=== PATIENT | male | born 1950 | race African-American/Black ===

== ENCOUNTER 2020-06-05 11:47 | Inpatient (IN) | payer MEDICARE, OTHER ==
[~2020-06-05] VITALS: Ht 182.9 cm; Wt 94.9 kg
[2020-06-05 11:47] VITALS: BP 126/87
[2020-06-05 11:50] VITALS: BP 126/87
--- NOTE | 2020-06-05 11:55 | NUR ---
ED Nurse Note: Patient BIBA d/t tremors that started this AM. Patient states he was going to a doctor appointment this AM and called the ambulance because of the tremors. Patient AxO x 4, patient has temp of 103.2 oral. Ice packs wrapped in towels placed in under arms, Dr. Dale notified. Patient HR between 120's and 135. Patient has no s/s of acute distress, on the desk monitor.
[2020-06-05] MEDS ORDERED: Piperacillin/Tazobactam 3.375 GM in NS 110 ML IVPB ONE (12:00)
[2020-06-05] MEDS ORDERED: Vancomycin 1 GM in NS 275 ML IVPB ONE (12:00)
[2020-06-05] MEDS ORDERED: Acetaminophen 500mg (ES) tab ORAL ONE (12:00)
[2020-06-05 12:39] LABS: HEMATOCRIT 45.2 % (42.0-52.0); HEMOGLOBIN 14.4 G/DL (14.2-18.0); MEAN CORPUSCULAR VOLUME 95 FL (80-99); PLATELET COUNT 164 K/UL (150-450); RED BLOOD COUNT 4.78 M/UL (4.70-6.10); RED CELL DISTRIBUTION WIDTH 12.5 % (11.6-14.8); WHITE BLOOD COUNT 14.8 K/UL (4.8-10.8)
[2020-06-05 12:40] LABS: APPEARANCE,URINE CLOUDY; BILIRUBIN, URINE NEGATIVE (NEGATIVE); COLOR,URINE PALE YELLOW; GLUCOSE, URINE (UA) NEGATIVE (NEGATIVE); KETONES,URINE 2+ (NEGATIVE); LEUKOCYTE ESTERASE ,URINE 3+ (NEGATIVE); NITRITE,URINE NEGATIVE (NEGATIVE); PH,URINE 6.5 (4.5-8.0); PROTEIN,URINE 3+ (NEGATIVE); UROBILINOGEN,URINE 1 MG/DL (0.0-1.0)
[2020-06-05 12:47] LABS: ANION GAP 13 mmol/L (5-15); BLOOD UREA NITROGEN 20 mg/dL (7-18); CALCIUM 9.8 MG/DL (8.5-10.1); CARBON DIOXIDE 21 MMOL/L (21-32); CHLORIDE 101 MMOL/L (98-107); POTASSIUM 4.2 MMOL/L (3.5-5.1); SODIUM 135 MMOL/L (136-145)
[2020-06-05 13:01] LABS: ALANINE AMINOTRANSFERASE 22 U/L (12-78); ALBUMIN 2.9 G/DL (3.4-5.0); ALBUMIN/GLOBULIN RATIO 0.5 (1.0-2.7); ALKALINE PHOSPHATASE 89 U/L (46-116); ASPARTATE AMINO TRANSFERASE 26 U/L (15-37); BILIRUBIN,TOTAL 1.5 MG/DL (0.2-1.0); CKMB 0.8 NG/ML (0.0-3.6); CREATINE KINASE 86 U/L (26-308)
[2020-06-05 13:04] LABS: BILIRUBIN,DIRECT 0.7 MG/DL (0.0-0.3)
--- NOTE | 2020-06-05 13:06 | Emergency Room Report ---
History of Present Illness General Chief Complaint: General Complaint Source: Patient Present Illness HPI Disclaimer: Please note that this report is being documented using DRAGON technology. This can lead to erroneous entry secondary to incorrect interpretation by the dictating instrument. HPI: This is a 70-year-old male with history of bladder cancer status post urostomy recent diagnosis of kidney stones presents for evaluation of tremors. Patient was scheduled to have outpatient imaging for evaluation of left-sided kidney stones. He reported left flank pain yesterday but improved this morning. EMS arrived at his home found him tachycardic and febrile. Heart rate was 140s blood pressures were stable. Patient was febrile with a fever of 103. He denies vomiting, nausea, diarrhea. Denies palpitations, shortness of breath, cough. No known sick contacts. Denies headaches, sore throat, nasal congestion or other changes in his health. Follows with urology at [facility] PMH: Bladder cancer PSH: Urostomy Allergies: Denied Social Hx: Quit smoking many decades ago Allergies: Coded Allergies: No Known Allergies (Unverified , 06/05/20) COVID-19 Screening Contact w/high risk pt: No Experienced COVID-19 symptoms?: No COVID-19 Testing performed RESIDENTIAL SUBCONTRACTOR: No Nursing Documentation-[facility] Past Medical History: No History, Except For Hx Cardiac Problems: Yes - Bladder CA, urostomy, kidney stone. Hx COPD: No Hx Cerebrovascular Accident: No Hx Seizures: No Review of Systems All Other Systems: negative except mentioned in HPI Physical Exam Vital Signs Date Time Temp Pulse Resp B/P (MAP) Pulse Ox O2 Delivery O2 Flow Rate FiO2 06/05/20 11:33 97.9 140 19 126/87 (100) 96 Room Air General: Awake and alert, no acute distress, febrile HEENT: NC/AT. EOMI. Cardiovascular: Tachycardic. S1 and S2 normal. No murmur appreciated Resp: Normal work of breathing. No cough, wheezing or crackles appreciated Abdomen: Abdomen is soft, nondistended. Nontender. Urostomy bag present in right lower quadrant with hazy urine Skin: Intact. No abrasions, laceration or rash over the exposed skin MSK: Normal tone and bulk. Moving all extremities. No obvious deformity. Neuro: Awake and alert. Mentating appropriately. Procedures Critical Care Time Critical Care Time Total critical care time: Approximately 31 minutes Due to a high probability of clinically significant, life threatening deterioration, the patient required the highest level of preparedness to intervene emergently and I personally spent this critical care time directly and personally managing the patient. This critical care time included obtaining a history, examining the patient, pulse oximetry, ordering and reviewing studies , ordering treatments, evaluating response to treatment and updating management plan as needed, frequent reassessment and discussion with other providers as well as arranging for ultimate disposition. This critical to care time was performed to assess and manage the high probability of life-threatening deterioration that could result in multiorgan failure. This critical care time is separate from the separately billable procedures and treating other patients. Medical Decision Making Diagnostic Impression: Primary Impression: UTI (urinary tract infection) Additional Impression: Sepsis ER Course 70-year-old male with history of bladder cancer status post urostomy recent diagnosis kidney stones presenting for tremors. Patient arrives febrile and tachycardic. Greatest concern for sepsis likely from urinary source. Also on the differential pneumonia, COVID-19, gastroenteritis, mild clonus, other viral syndrome. Patient arrives in stable condition. IV access established IV fluids started 30 cc/kg. Patient was provided with empiric antibiotics and antipyretics. EKG shows sinus tachycardia but no acute ischemic changes. We will draw broad labs including cultures, lactate and sent for COVID-19 testing. He will require CT of his torso to evaluate for possible infected kidney stone. Patient will require admission 1400: Labs show evidence of an acute urinary tract infection positive for leukocyte esterase, multiple RBCs, innumerable WBCs and moderate bacteria. Elevated white count of 14.8 with a neutrophil predominance. Rapid COVID test was negative. Patient show signs of acute kidney injury with an elevation in creatinine 2.0 and BUN as well. Bilirubin elevated. CT scan is pending at this time. Patient is admitted to Dr. Cochran per his health insurance plan Sepsis reevaluation: I, Dr. Gutierrez Dale, reevaluated the patient Capillary refill: Less than 2 seconds Heart rate: 110 Respiratory rate: 19 Initial Lactate: 2.5 Repeat Lactate: 2.0 Pressors: Not indicated No signs of fluid overload Laboratory Tests Test 06/05/20 12:05 06/05/20 13:00 06/06/20 07:35 06/06/20 16:00 White Blood Count 14.8 K/UL (4.8-10.8) H 11.2 K/UL (4.8-10.8) H Red Blood Count 4.78 M/UL (4.70-6.10) 4.81 M/UL (4.70-6.10) Hemoglobin 14.4 G/DL (14.2-18.0) 14.5 G/DL (14.2-18.0) Hematocrit 45.2 % (42.0-52.0) 45.7 % (42.0-52.0) Mean Corpuscular Volume 95 FL (80-99) 95 FL (80-99) Mean Corpuscular Hemoglobin 30.2 PG (27.0-31.0) 30.1 PG (27.0-31.0) Mean Corpuscular Hemoglobin Concent 31.9 G/DL (32.0-36.0) L 31.7 G/DL (32.0-36.0) L Red Cell Distribution Width 12.5 % (11.6-14.8) 13.1 % (11.6-14.8) Platelet Count 164 K/UL (150-450) 148 K/UL (150-450) L Mean Platelet Volume 9.0 FL (6.5-10.1) 8.6 FL (6.5-10.1) Neutrophils (%) (Auto) % (45.0-75.0) % (45.0-75.0) Lymphocytes (%) (Auto) % (20.0-45.0) % (20.0-45.0) Monocytes (%) (Auto) % (1.0-10.0) % (1.0-10.0) Eosinophils (%) (Auto) % (0.0-3.0) % (0.0-3.0) Basophils (%) (Auto) % (0.0-2.0) % (0.0-2.0) Differential Total Cells Counted 100 100 Neutrophils % (Manual) 98 % (45-75) H 77 % (45-75) H Lymphocytes % (Manual) 1 % (20-45) L 4 % (20-45) L Monocytes % (Manual) 1 % (1-10) 3 % (1-10) Eosinophils % (Manual) 0 % (0-3) 0 % (0-3) Basophils % (Manual) 0 % (0-2) 0 % (0-2) Band Neutrophils 0 % (0-8) 16 % (0-8) H Platelet Estimate Adequate Decreased L Platelet Morphology Normal Normal Red Blood Cell Morphology Normal Normal Prothrombin Time 11.2 SEC (9.30-11.50) Prothrombin Time INR 1.0 (0.9-1.1) Activated Partial Thromboplast Time 28 SEC (23-33) Urine Color Pale yellow Urine Appearance Cloudy Urine pH 6.5 (4.5-8.0) Urine Specific [place] 1.015 (1.005-1.035) Urine Protein 3+ (NEGATIVE) H Urine Glucose (UA) Negative (NEGATIVE) Urine Ketones 2+ (NEGATIVE) H Urine Blood 5+ (NEGATIVE) H Urine Nitrite Negative (NEGATIVE) Urine Bilirubin Negative (NEGATIVE) Urine Urobilinogen 1 MG/DL (0.0-1.0) H Urine Leukocyte Esterase 3+ (NEGATIVE) H Urine RBC 20-30 /HPF (0 - 0) H Urine WBC Tntc /HPF (0 - 0) H Urine Squamous Epithelial Cells Occasional /LPF Urine Amorphous Sediment Many /LPF (NONE) H Urine Bacteria Moderate /HPF (NONE) H Sodium Level 135 MMOL/L (136-145) L 132 MMOL/L (136-145) L Potassium Level 4.2 MMOL/L (3.5-5.1) 4.4 MMOL/L (3.5-5.1) Chloride Level 101 MMOL/L (98-107) 100 MMOL/L (98-107) Carbon Dioxide Level 21 MMOL/L (21-32) 20 MMOL/L (21-32) L Anion Gap 13 mmol/L (5-15) 12 mmol/L (5-15) Blood Urea Nitrogen 20 mg/dL (7-18) H 17 mg/dL (7-18) Creatinine 2.0 MG/DL (0.55-1.30) H 2.1 MG/DL (0.55-1.30) H Estimated Glomerular Filtration Rate 33.4 mL/min (>60) 38.3 mL/min (>60) Glucose Level 152 MG/DL (74-106) H 118 MG/DL (74-106) H Lactic Acid Level 2.50 mmol/L (0.4-2.0) H 2.00 mmol/L (0.66-2.22) Calcium Level 9.8 MG/DL (8.5-10.1) 9.1 MG/DL (8.5-10.1) Phosphorus Level 2.0 MG/DL (2.5-4.9) L Magnesium Level 1.7 MG/DL (1.8-2.4) L Total Bilirubin 1.5 MG/DL (0.2-1.0) H Direct Bilirubin 0.7 MG/DL (0.0-0.3) H Aspartate Amino Transferase (AST) 26 U/L (15-37) Alanine Aminotransferase (ALT) 22 U/L (12-78) Alkaline Phosphatase 89 U/L (46-116) Total Creatine Kinase 86 U/L (26-308) Creatine Kinase MB 0.8 NG/ML (0.0-3.6) Creatine Kinase MB Relative Index 0.9 Troponin I 0.000 ng/mL (0.000-0.056) Pro-B-Type Natriuretic Peptide 407 pg/mL (0-125) H Total Protein 8.2 G/DL (6.4-8.2) Albumin 2.9 G/DL (3.4-5.0) L Globulin 5.3 g/dL Albumin/Globulin Ratio 0.5 (1.0-2.7) L Calcium (Send out) Pending Parathyroid Hormone (Intact) Pending Urine Random Sodium 36 mmol/L (20-110) Urine Creatinine 114.1 MG/DL (30.0-125.0) Microbiology Date/Time Source Procedure Growth Status 06/05/20 12:05 Nasopharynx SARS-CoV-2 RdRp Gene Assay - Final Complete EKG Diagnostic Results EKG Time: 12:23 Rate: tachycardiac Rhythm: NSR ST Segments: no acute changes Other Impression Sinus rhythm, normal axis, tachycardic with rate of 113 bpm. QTc interval [address] segment changes. Rhythm Strip Diag. Results Rhythm Strip Time: 12:22 EP Interpretation: yes Rate: 113 Rhythm: NSR, no PVC's, no ectopy Last Vital Signs Date Time Temp Pulse Resp B/P (MAP) Pulse Ox O2 Delivery O2 Flow Rate FiO2 06/05/20 11:33 97.9 140 19 126/87 (100) 96 Room Air Disposition: ADMITTED INPATIENT Condition: Improved Referrals: NOT CHOSEN IPA/,REFERRING (PCP) Gutierrez Dale MD Jun 05, 2020 13:06
--- NOTE | 2020-06-05 13:15 | NUR ---
ED Nurse Note: Handoff report given to Mariaelena WOOTEN. Patient stable, no s/s of acute distress. Endorsed plan of care.
[2020-06-05 13:30] VITALS: BP 126/87
--- NOTE | 2020-06-05 13:30 | NUR ---
ED Nurse Note: Lactic acid resent to lab
--- NOTE | 2020-06-05 13:55 | Diagnostic Imaging Report ---
Indication: Cough Technique: One view of the chest Comparison: none Findings: Inspiration is suboptimal. The heart size is normal. No definite infiltrates, effusions, congestion. Mild interstitial prominence is probably related to body habitus. Impression: Findings as noted. No definite acute process
--- NOTE | 2020-06-05 14:56 | NUR ---
ED Nurse Note: Patient was admited to Tele unit due to high fever, possible sepsis. Patient was transfered to the unit via gurney, by ACLS protocol with all belongings. Patient AAO x3, VSS at this time.
--- NOTE | 2020-06-05 15:00 | NUR ---
NURSE NOTES: Pt brought up from ER via gurney breathing easily on room air, denies SOB and denies pain at this time. Vital signs stable with ST on the monitor at 120/min. IV access RW, leaking on flush, removed. LAC access flushed with 10 ml NS and locked. Pt ambulated to the bed, moving all extremities well. Lungs cleat bilaterally. Abdomen soft/supple no rigidity/masses/guarding. No pedal or dependent edema. Bed left in low position, side rails up x 2 and call light left near pt's hand.
--- NOTE | 2020-06-05 15:17 | NUR ---
CASE MANAGEMENT:REVIEW 70 YR OLD MALE BIBA FROM HOME CC: BODY TREMORS PMH: KIDNEY STONES SI: SEPSIS 103.2 140 19 126/87 96% ON RA WBC+14.8 BUN+20 CR+2.0 PHOS-2.0 MAG-1.7 IS: 1L NS BOLUS IV VANCOMYCIN IV ZOSYN TYLENOL PO COVID SWAB URINE CX CT ABD/PELVIS CHEST XRAY BLOOD CX : TELEMETRY STATUS
--- NOTE | 2020-06-05 15:20 | Diagnostic Imaging Report ---
CLINICAL INDICATION:History of bladder cancer with urostomy, pain, history kidney stones, left flank pain TECHNIQUE: No oral contrast, per emergency room physician request. No IV contrast, due to history of renal insufficiency Spiral acquisitions obtained through the chest, abdomen, and pelvis. Multiplanar reconstructions were generated. Total dose length product 739 mGycm. CTDIvol(s) 9 mGy. Radiation dose was minimized using automated exposure control COMPARISON: none FINDINGS Chest: Small paraseptal bullae are seen in the right lung apex. 2 small calcified nodules are seen in the upper right middle lobe and another in the posterior inferior right lower lobe. 6 mm subpleural noncalcified nodule is seen in the right middle lobe, image 61 series 6. A 3 mm nodule is seen in the right middle lobe, 62/6. Compressive atelectatic changes are seen at both lung bases. Mosaic perfusion pattern is also seen at the lung bases. No dense consolidation. No definite congestion. The pleural spaces are clear. The heart size is normal. No pericardial effusion. Normal esophagus. Granulomatous sha calcifications are seen in the right pulmonary hilum. No mediastinal or hilar mass or adenopathy. The thyroid is prominent without discrete mass. No axillary or chest wall mass or adenopathy. The bones are unremarkable. Abdomen pelvis: There is a 7 x 7 x 5 mm calculus in the proximal left ureter, just downstream from the ureteropelvic junction. This results in mild to moderate hydronephrosis. There is some perinephric fat stranding. There also appears to be a 5 mm calculus and a second proximal punctate calculus in the mid left ureter. The ureter is dilated proximal to this as well. There is a 4 mm calculus in the lower pole collecting system and a cluster of calculi and a posterior interpolar region calyx. There is a 4.5 cm posterior cyst. There is a urinary diversion, with a urostomy in the right lower quadrant. There is a 5 mm calculus which appears to be dependent within the fluid-filled urostomy and is probably not within either ureter. There is minimal right hydronephrosis, although no definite right ureteral calculus is demonstrated. There is stranding of the right perinephric fat. A very faint punctate calculus is seen within the right lower pole collecting system. Lack of IV contrast limits assessment of the renal parenchyma. There is a 4 cm cyst in the upper pole of the left kidney. There is a parastomal hernia which contains a knuckle of small bowel versus the edge of a small bowel loop. There is some dilatation of small bowel in the anterior upper abdomen. However, this is probably functional related to the small bowel to small bowel anastomosis where the urostomy segment was resected. There is also a ventral hernia which contains a knuckle of small bowel. This does not demonstrate evidence of strangulation or obstruction. There are occasional colonic diverticula. No evidence of diverticulitis. There is mild distention of the rectum with feces. The appendix is normal. No free or loculated intraperitoneal gas or fluid is evident. The stomach and duodenum are unremarkable. There is left-sided para-aortic lymphadenopathy. Nodes in this area measure up to 2 cm long axis and 1.3 cm short axis dimensions. There is stranding of the fat surrounding the enlarged nodes. Prominent peripancreatic nodes are also demonstrated. There is a 7.7 cm long axis diameter unilocular cyst in the right side of the pelvis. This appears to be contiguous with the iliac vessels. Lack of IV contrast limits assessment of the other solid organs. The liver is borderline hypoattenuating. No focal abnormality demonstrated. The gallbladder, bile ducts, pancreas, spleen, adrenals are unremarkable. The bones are unremarkable. Some heterotopic ossification is seen in the left inferior buttock region. IMPRESSION: Postsurgical changes, as described, status post cystectomy and urinary diversion 7 x 7 x 5 mm calculus in the proximal left ureter. 5 mm calculus and smaller punctate calculus in the mid left ureter. This results in mild to moderate left hydronephrosis as well as perinephric fat stranding Trace to mild right hydronephrosis, without definite downstream obstructive lesion. Significance/etiology uncertain Nonspecific stranding of the perinephric fat on the right. Could be chronic, could be related to the mild hydronephrosis, or could indicate acute inflammation 5 mm calculus probably within the urostomy pouch Nonobstructive bilateral intrarenal calculi Left-sided periaortic lymphadenopathy and infiltration of the surrounding fat. While possibly reactive, this raises concern for metastatic lymphadenopathy. Consider further evaluation with PET scanning if indicated clinically Small parastomal hernia containing a knuckle of or the edge of the loop of small bowel. Dilatation of the small bowel adjacent and possibly proximal to this is probably due to dysfunctional is infiltration of the small bowel related to the surgical anastomosis, that mild small bowel obstruction related to this cannot be completely ruled out. Small ventral hernia, without evidence of obstruction or strangulation 7.7 cm right pelvic unilocular simple cyst. Probably postoperative lymphocele. Cystic neoplasm deemed much less likely Borderline hepatic hypoattenuation, could indicate very mild fatty change Colonic diverticulosis. No evidence of diverticulitis Mild distention of the rectum with feces, doubt significance but early fecal impaction possible Evidence of old granulomatous disease within the right lung and right pulmonary hilum. Small noncalcified nodules in the right middle lobe are noted. If there is significant smoking history or other risk factors for lung carcinoma, then short interval follow up at 6 months is recommended if clinically indicated Small paraseptal bullous changes at the right lung apex Basilar compressive atelectatic changes. Mosaic perfusion pattern probably is due to atelectasis The CT scanner at [facility] is accredited by the [employer] and the scans are performed using protocols designed to limit radiation exposure to as low as reasonably achievable to attain images of sufficient resolution adequate for diagnostic evaluation.
[2020-06-05 16:00] VITALS: BP 112/68
[2020-06-05 17:26] VITALS: BP 100/62
[2020-06-05] MEDS ORDERED: NS w/KCl 20mEq 1000ml 1,000 ML IV SCH (19:00)
--- NOTE | 2020-06-05 19:25 | NUR ---
NURSE NOTES: Received hand-off report from Mariajose Clayton RN. Patient in stable condition, alert and oriented x4, no acute signs of distress noted. Left antecubital 20g IV saline locked, patent, flushed with 10mL NS, no tenderness / pain noted. IV site is intact, clean, dry, no infiltration, leaking or redness noted. Respirations are unlabored, regular and even, on room air, sPo2 is 100%. color television console monitor in place, bed in lowest and locked position, bed alarm activated, call light within reach.
--- NOTE | 2020-06-05 19:25 | NUR ---
Nurses Note Report given to Lory WOOTEN. In stable condition. Plan of care endorsed.
[2020-06-05 20:00] VITALS: BP 127/78
[2020-06-05] MEDS: Piperacillin/Tazobactam 3.375 GM in NS 110 ML IVPB SCH (20:27)
[2020-06-05] MEDS: Heparin 5000 units/ml inj SUBQ SCH (20:29)
--- NOTE | 2020-06-05 22:15 | History and Physical Report ---
DATE OF ADMISSION: 06/05/2020 HISTORY OF PRESENT ILLNESS: This is a 70-year-old male with history of bladder carcinoma, status post urostomy, and also a history of urolithiasis. He came to the hospital for feeling weak and tremulous. The patient states that he has been having left-sided flank pain at home. He was tachycardic and febrile per his own report. He was admitted to the hospital with concerns about urosepsis. PAST HISTORY: Bladder carcinoma, status post urostomy. HOME MEDICATIONS: Reviewed and reconciled in chart. ALLERGIES: None reported. SOCIAL HISTORY: He has been a smoker, but quit many years ago. PHYSICAL EXAMINATION: GENERAL: Reveals a 70-year-old male. HEENT: Unremarkable. CHEST: Decreased breath sounds bilaterally with normal heart sounds. ABDOMEN: Soft. EXTREMITIES: There is no edema. A urostomy bag is noted in the right lower quadrant. VITAL SIGNS: Blood pressure 126/60, heart rate is 110, respirations 18, and O2 saturation 92% on room air. LABORATORY DATA: Laboratory testing shows white count 14,000. Hemoglobin is normal. Creatinine of 2. Coags are negative. Urinalysis negative except for pus cells. IMAGING STUDIES: X-ray of the chest was obtained, which shows clear lung purdy bilaterally. CT of the abdomen and pelvis obtained, which shows a calculus in the left ureter with hydronephrosis. There is a parastomal hernia, chronic diverticulitis, left-sided para-aortic lymphadenopathy, cystectomy, and diversion findings. IMPRESSION: 1. Urosepsis. 2. Bladder carcinoma. 3. Urostomy. DISCUSSION: Admit to the hospital. At this point, I will continue his home medications. Consult Urology and Nephrology. IV fluids to be given. We will follow carefully. Jaya Cochran M.D. DR: HARSHA JOB#: [id number] CC:
[2020-06-06] VITALS: BP 135/79
[2020-06-06 04:00] VITALS: BP 144/88
--- NOTE | 2020-06-06 07:20 | NUR ---
HAND-OFF: Report given to SUGAR Clayton. Patient in stable condition, plan of care endorsed
[2020-06-06 08:25] VITALS: BP 142/86
[2020-06-06] MEDS: Piperacillin/Tazobactam 3.375 GM in NS 110 ML IVPB SCH ×2 (08:38→16:36)
[2020-06-06] MEDS: Heparin 5000 units/ml inj SUBQ SCH ×2 (08:41→21:40)
[2020-06-06 08:46] LABS: HEMATOCRIT 45.7 % (42.0-52.0); HEMOGLOBIN 14.5 G/DL (14.2-18.0); MEAN CORPUSCULAR VOLUME 95 FL (80-99); PLATELET COUNT 148 K/UL (150-450); RED BLOOD COUNT 4.81 M/UL (4.70-6.10); RED CELL DISTRIBUTION WIDTH 13.1 % (11.6-14.8); WHITE BLOOD COUNT 11.2 K/UL (4.8-10.8)
[2020-06-06 09:00] LABS: ANION GAP 12 mmol/L (5-15); BLOOD UREA NITROGEN 17 mg/dL (7-18); CALCIUM 9.1 MG/DL (8.5-10.1); CARBON DIOXIDE 20 MMOL/L (21-32); CHLORIDE 100 MMOL/L (98-107); CREATININE 2.1 MG/DL (0.55-1.30); POTASSIUM 4.4 MMOL/L (3.5-5.1); SODIUM 132 MMOL/L (136-145)
--- NOTE | 2020-06-06 10:02 | NUR ---
Nurse Notes Pt is A/O x4 and breathing easily on room air, denies SOB and denies pain at this time. Vital signs stable with ST on the monitor at 120/min. His Iv on the LAC access has been flushed with 10ml NS and locked with cap. Pt ambulates to the bed and bathroom moving all extremities well. Lungs cleat bilaterally. Abdomen soft/supple no rigidity/masses/guarding. No pedal or dependent edema. Bed left in low position, side rails up x 2 and call light left near pt's hand.
--- NOTE | 2020-06-06 10:20 | Pulmonology Progress Note ---
Subjective Interval Events: Looking na dfeeling better Constitutional: Reports: no symptoms HEENT: Repors: no symptoms Respiratory: Reports: no symptoms Cardiovascular: Reports: no symptoms Gastrointestinal/Abdominal: Reports: no symptoms Allergies: Coded Allergies: No Known Allergies (Unverified , 06/05/20) Objective Last 24 Hour Vital Signs Date Time Temp Pulse Resp B/P (MAP) Pulse Ox O2 Delivery O2 Flow Rate FiO2 06/06/20 09:24 Room Air 06/06/20 09:00 104 06/06/20 08:25 98.1 108 19 142/86 (104) 95 06/06/20 04:00 98.1 105 19 144/88 (106) 95 06/06/20 04:00 105 06/06/20 00:00 97.9 111 19 135/79 (97) 97 06/06/20 00:00 111 06/05/20 21:00 Room Air 06/05/20 20:00 111 06/05/20 20:00 99.5 117 19 127/78 (94) 97 06/05/20 18:00 115 06/05/20 17:26 98.5 118 18 100/62 (75) 96 06/05/20 16:00 136 20 112/68 (83) 96 06/05/20 15:34 Room Air 06/05/20 14:56 99.0 19 126/87 96 Room Air 06/05/20 13:30 99.0 19 126/87 96 Room Air 06/05/20 12:55 99.0 06/05/20 11:50 135 19 Room Air 06/05/20 11:47 103.7 19 126/87 96 Room Air 06/05/20 11:33 97.9 140 19 126/87 (100) 96 Room Air Intake and Output 06/05/20 06/06/20 19:00 07:00 Intake Total 2240 ml Output Total 475 ml Balance 1765 ml Intake Oral 240 ml IV Total 2000 ml Output Urine Total 475 ml # Voids 3 # Bowel Movements 1 General Appearance: no acute distress HEENT: normocephalic Respiratory: chest wall non-tender, lungs clear Cardiovascular: normal peripheral pulses, normal rate Abdomen: normal bowel sounds Microbiology Date/Time Source Procedure Growth Status 06/05/20 12:05 Blood Blood Culture - Preliminary Resulted 06/05/20 12:05 Nasopharynx SARS-CoV-2 RdRp Gene Assay - Final Complete 06/05/20 12:05 Urine,Clean Catch Urine Culture - Preliminary Gram Negative Rachid Resulted Laboratory Tests 06/05/20 12:05: White Blood Count 14.8H, Red Blood Count 4.78, Hemoglobin 14.4, Hematocrit 45.2 , Mean Corpuscular Volume 95, Mean Corpuscular Hemoglobin 30.2, Mean Corpuscular Hemoglobin Concent 31.9L, Red Cell Distribution Width 12.5, Platelet Count 164, Mean Platelet Volume 9.0, Neutrophils (%) (Auto) , Lymphocytes (%) (Auto) , Monocytes (%) (Auto) , Eosinophils (%) (Auto) , Basophils (%) (Auto) , Differential Total Cells Counted 100, Neutrophils % ( Manual) 98H, Lymphocytes % (Manual) 1L, Monocytes % (Manual) 1, Eosinophils % ( Manual) 0, Basophils % (Manual) 0, Band Neutrophils 0, Platelet Estimate Adequate, Platelet Morphology Normal, Red Blood Cell Morphology Normal, Prothrombin Time 11.2, Prothromb Time International Ratio 1.0, Activated Partial Thromboplast Time 28, Urine Color Pale yellow, Urine Appearance Cloudy, Urine pH 6.5, Urine Specific [place] 1.015, Urine Protein 3+H, Urine Glucose (UA ) Negative, Urine Ketones 2+H, Urine Blood 5+H, Urine Nitrite Negative, Urine Bilirubin Negative, Urine Urobilinogen 1H, Urine Leukocyte Esterase 3+H, Urine RBC 20-30H, Urine WBC TntcH, Urine Squamous Epithelial Cells Occasional, Urine Amorphous Sediment ManyH, Urine Bacteria ModerateH, Sodium Level 135L, Potassium Level 4.2, Chloride Level 101, Carbon Dioxide Level 21, Anion Gap 13, Blood Urea Nitrogen 20H, Creatinine 2.0H, Estimat Glomerular Filtration Rate 33.4, Glucose Level 152H, Lactic Acid Level 2.50H, Calcium Level 9.8, Phosphorus Level 2.0L, Magnesium Level 1.7L, Total Bilirubin 1.5H, Direct Bilirubin 0.7H, Aspartate Amino Transf (AST/SGOT) 26, Alanine Aminotransferase ( ALT/SGPT) 22, Alkaline Phosphatase 89, Total Creatine Kinase 86, Creatine Kinase MB 0.8, Creatine Kinase MB Relative Index 0.9, Troponin I 0.000, Pro-B- Type Natriuretic Peptide 407H, Total Protein 8.2, Albumin 2.9L, Globulin 5.3, Albumin/Globulin Ratio 0.5L 06/05/20 13:00: Lactic Acid Level 2.00 06/06/20 07:35: White Blood Count 11.2H, Red Blood Count 4.81, Hemoglobin 14.5, Hematocrit 45.7 , Mean Corpuscular Volume 95, Mean Corpuscular Hemoglobin 30.1, Mean Corpuscular Hemoglobin Concent 31.7L, Red Cell Distribution Width 13.1, Platelet Count 148L, Mean Platelet Volume 8.6, Neutrophils (%) (Auto) , Lymphocytes (%) (Auto) , Monocytes (%) (Auto) , Eosinophils (%) (Auto) , Basophils (%) (Auto) , Differential Total Cells Counted 100, Neutrophils % ( Manual) 77H, Lymphocytes % (Manual) 4L, Monocytes % (Manual) 3, Eosinophils % ( Manual) 0, Basophils % (Manual) 0, Band Neutrophils 16H, Platelet Estimate DecreasedL, Platelet Morphology Normal, Red Blood Cell Morphology Normal, Sodium Level 132L, Potassium Level 4.4, Chloride Level 100, Carbon Dioxide Level 20L, Anion Gap 12, Blood Urea Nitrogen 17, Creatinine 2.1H, Estimat Glomerular Filtration Rate 38.3, Glucose Level 118H, Calcium Level 9.1 Current Medications Medications (Trade) Dose Ordered Sig/Kelin Route PRN Reason Start Time Stop Time Status Last Admin Dose Admin Acetaminophen (Tylenol) 650 mg Q4H PRN ORAL Mild Pain (Pain Scale 1-3) 06/05/20 17:45 07/05/20 17:44 Barium Sulfate (Readi-Cat 2) 450 ml NOW PRN ORAL Radiology Procedure 06/05/20 12:00 06/07/20 11:51 Dextrose (Dextrose 50%) 25 ml Q30M PRN IV Hypoglycemia 06/05/20 17:45 09/03/20 17:44 Dextrose (Dextrose 50%) 50 ml Q30M PRN IV Hypoglycemia 06/05/20 17:45 09/03/20 17:44 Heparin Sodium (Porcine) (Heparin 5000 units/ml) 5,000 units EVERY 12 HOURS SUBQ 06/05/20 21:00 07/20/20 20:59 06/06/20 08:41 Piperacillin Sod/ Tazobactam Sod 3.375 gm/Sodium Chloride 110 ml @ 27.5 mls/hr EVERY 12 HOURS IVPB 06/05/20 21:00 06/10/20 20:59 06/06/20 08:38 Potassium Chloride/Sodium Chloride 1,000 ml @ 50 mls/hr Q20H IV 06/05/20 19:00 07/05/20 18:59 06/05/20 19:51 Assessment/Plan Assessment/Plan IMPRESSION: 1. Urosepsis. 2. Bladder carcinoma. 3. Urostomy. DISCUSSION: Consulted nephrology Has gram negative rods in urine On Zosyn Feeling better SaRS rapid test negative Kendy Peñaloza Omar Syed MD Jun 06, 2020 10:20
[2020-06-06 12:24] VITALS: BP 141/89
--- NOTE | 2020-06-06 13:32 | Consultation ---
Consult Note Assessment/Plan Renal consult dictated # [id number] Fidel Osborne MD Jun 06, 2020 13:32
[2020-06-06] MEDS: D5 1/2NS 1,000 ML IV SCH ×2 (14:52→23:45)
[2020-06-06 16:01] VITALS: BP 138/81
--- NOTE | 2020-06-06 19:30 | NUR ---
NURSE NOTES: Received report from Bijan/Mariajose RN. Patient is awake, alert and oriented x 4. On regular diet, instructed and amenable. castings trimmer is in place, shows sinus rhythm with no chest pain reported. IV site is on left AC G-20, running fluid of D5 1/2 NS @ 100 cc/hour that is patent and intact. Patient is ambulatory with steady gait. Safety measures are in placed, bed in lowest and locked position. Side rails up x 2. Call light button and bedside table within reach, instructed to call for any assistance needed. Will continue plan of care.
[2020-06-06 20:00] VITALS: BP 140/80
--- NOTE | 2020-06-06 23:44 | Consultation ---
DATE OF CONSULTATION: 06/06/2020 NEPHROLOGY CONSULTATION CONSULTING PHYSICIAN: Fidel Osborne MD. REFERRING PHYSICIAN: Jaya Cochran MD. REASON FOR CONSULTATION: Renal failure. HISTORY OF PRESENT ILLNESS: This is a very pleasant 70-year-old male, who was in his usual state of health until yesterday when he started having chills. He had also some left-sided flank pain. He came to the emergency room. Workup showed that he had a left ureteral stone obstructing as well as urinary tract infection. He was admitted. His serum creatinine was elevated at 2.0 with BUN of 20 and the creatinine is still 2.1 today. The patient is aware that he had some kidney problems, but he cannot give me details. He stated that he was supposed to have an MRI done as an outpatient. He has however a history of bladder cancer. He had cystectomy in 2016. He has a diverting urostomy. It is unclear what his baseline serum creatinine is. He denies any history of diabetes or hypertension. MEDICATIONS: Reviewed in the EMR. SOCIAL HISTORY: Very remote history of smoking. No history of alcohol abuse. The patient lives at home with . ALLERGIES: No known drug allergies. REVIEW OF SYSTEMS: Notable only for the left-sided flank pain, but no dysuria. PHYSICAL EXAMINATION: GENERAL: The patient is a pleasant male in no acute distress. VITAL SIGNS: Blood pressure 141/89, pulse 112, temperature 97.8, and respiratory rate is 20 . HEENT: [place] conjunctivae. Anicteric sclerae. NECK: Supple. LUNGS: Clear to auscultation. HEART: S1, S2 without murmurs or rubs. ABDOMEN: Soft and nontender. Left CVA tenderness, mild. EXTREMITIES: Trace pedal edema bilaterally. LABORATORY FINDINGS: The CBC shows a WBC count of 11,200, which is down from yesterday; hematocrit is 45.7, hemoglobin is 14.5, and platelet is 148,000. The chemistry panel shows serum sodium of 132, potassium 4.4, chloride 100, CO2 of 20, BUN is 17, creatinine 2.1, and blood sugar is 118. Calcium is 9.1. Phosphorus was 2.0 yesterday with magnesium of 1.7. UA as of yesterday showed 3+ protein, 20-30 rbc's, too numerous to count wbc's per high-powered field with moderate amount of bacteria. The urine culture so far shows gram-negatives more than 100,000. ASSESSMENT: This is a 70-year-old male with history of bladder cancer, status post resection with diverting urostomy, who now presents with left ureteral stone, obstructing. He has a diagnosis of obstructive uropathy; however, he possibly has some history of chronic kidney disease as well as his serum creatinine should not rise to that level with only one obstructed kidney. He can also have acute renal failure for some other reason such as prerenal azotemia. PLAN: The patient was already started on antibiotics for his urinary tract infection. In terms of workup for his renal failure, I will get a spot urine sodium and creatinine to calculate the fractional excretion of sodium. Obviously, he needs to have evaluation by Urology and possibly removal of the stone to improve the function of the left side. I would hydrate the patient with IV fluid. A serum PTH level will be ordered to rule out secondary hyperparathyroidism, and vitamin D to rule out vitamin D deficiency. Thank you very much, Dr. Cochran, for this consultation. Fidel Osborne M.D. : DIANE JOB#: [id number] CC:
[2020-06-07] VITALS: BP 120/70
[2020-06-07] MEDS: Piperacillin/Tazobactam 3.375 GM in NS 110 ML IVPB SCH ×3 (00:41→20:43)
[2020-06-07 04:00] VITALS: BP 119/72
[2020-06-07] MEDS: D5 1/2NS 1,000 ML IV SCH (06:23)
--- NOTE | 2020-06-07 07:24 | NUR ---
HAND-OFF: Report given to SUGAR Billy. Patient is on bed, awake on stable condition, plan of care endersed..
--- NOTE | 2020-06-07 07:42 | NUR ---
Nurse Notes Received report Brett WOOTEN. Pt is A/Ox 4. couture dressmaker is in place, shows SR with no chest pain reported. IV site is on left AC 20 gauge, running fluid of D5 1/2 NS @ 100 cc/hour that is patent and intact. Pt is ambulatory with steady gait. Pt found sitting in chair. Safety measures are in placed, bed in lowest and locked position. Side rails up x 2. Call light button and bedside table within reach, instructed to call for any assistance needed.
[2020-06-07 08:00] VITALS: BP 136/87
--- NOTE | 2020-06-07 08:01 | Pulmonology Progress Note ---
Subjective Interval Events: Looking and feeling better Constitutional: Reports: no symptoms HEENT: Repors: no symptoms Respiratory: Reports: no symptoms Cardiovascular: Reports: no symptoms Gastrointestinal/Abdominal: Reports: no symptoms Allergies: Coded Allergies: No Known Allergies (Unverified , 06/05/20) Objective Last 24 Hour Vital Signs Date Time Temp Pulse Resp B/P (MAP) Pulse Ox O2 Delivery O2 Flow Rate FiO2 06/07/20 04:00 98.0 105 20 119/72 (88) 98 06/07/20 04:00 103 06/07/20 00:00 107 06/07/20 00:00 98.4 113 21 120/70 (87) 97 06/06/20 21:00 Room Air 06/06/20 20:00 98.0 111 21 140/80 (100) 96 06/06/20 20:00 112 06/06/20 18:45 83 06/06/20 16:31 102 06/06/20 16:01 100 19 138/81 (100) 97 06/06/20 12:27 102 06/06/20 12:24 97.8 112 20 141/89 (106) 96 06/06/20 09:24 Room Air 06/06/20 09:00 104 06/06/20 08:25 98.1 108 19 142/86 (104) 95 Intake and Output 06/06/20 06/07/20 19:00 07:00 Intake Total 480 ml 600 ml Output Total 400 ml 320 ml Balance 80 ml 280 ml Intake Oral 480 ml 600 ml Output Urine Total 400 ml 320 ml General Appearance: no acute distress HEENT: normocephalic Respiratory: chest wall non-tender, lungs clear Cardiovascular: normal peripheral pulses, normal rate Abdomen: normal bowel sounds Microbiology Date/Time Source Procedure Growth Status 06/05/20 12:05 Blood Blood Culture - Preliminary Gram Negative Bacillus 1 Resulted 06/05/20 12:05 Blood Blood Culture - Preliminary NO GROWTH AFTER 24 HOURS Resulted 06/05/20 12:05 Nasopharynx SARS-CoV-2 RdRp Gene Assay - Final Complete 06/05/20 12:05 Urine,Clean Catch Urine Culture - Preliminary Gram Negative Rachid Resulted Laboratory Tests 06/06/20 16:00: Urine Random Sodium 36, Urine Creatinine 114.1 Current Medications Medications (Trade) Dose Ordered Sig/Kelin Route PRN Reason Start Time Stop Time Status Last Admin Dose Admin Acetaminophen (Tylenol) 650 mg Q4H PRN ORAL Mild Pain (Pain Scale 1-3) 06/05/20 17:45 07/05/20 17:44 Barium Sulfate (Readi-Cat 2) 450 ml NOW PRN ORAL Radiology Procedure 06/05/20 12:00 06/07/20 11:51 Dextrose (Dextrose 50%) 25 ml Q30M PRN IV Hypoglycemia 06/05/20 17:45 09/03/20 17:44 Dextrose (Dextrose 50%) 50 ml Q30M PRN IV Hypoglycemia 06/05/20 17:45 09/03/20 17:44 Dextrose/Sodium Chloride 1,000 ml @ 100 mls/hr Q10H IV 06/06/20 13:45 07/06/20 13:44 06/07/20 06:23 Heparin Sodium (Porcine) (Heparin 5000 units/ml) 5,000 units EVERY 12 HOURS SUBQ 06/05/20 21:00 07/20/20 20:59 06/06/20 21:40 Piperacillin Sod/ Tazobactam Sod 3.375 gm/Sodium Chloride 110 ml @ 27.5 mls/hr Q8HR@0100,0900,1700 IVPB 06/06/20 17:00 06/13/20 16:59 06/07/20 00:41 Assessment/Plan Assessment/Plan IMPRESSION: 1. Urosepsis. 2. Bladder carcinoma. 3. Urostomy. DISCUSSION: Consulted nephrology Has gram negative rods in urine and blood On Zosyn Feeling better SaRS rapid test negative Await urology consult Seen by nephrology Kendy Peñaloza Omar Syed MD Jun 07, 2020 08:01
[2020-06-07 08:26] LABS: HEMATOCRIT 44.5 % (42.0-52.0); MEAN CORPUSCULAR VOLUME 96 FL (80-99); PLATELET COUNT 138 K/UL (150-450); RED BLOOD COUNT 4.65 M/UL (4.70-6.10); RED CELL DISTRIBUTION WIDTH 13.4 % (11.6-14.8); WHITE BLOOD COUNT 10.9 K/UL (4.8-10.8)
[2020-06-07] MEDS: Heparin 5000 units/ml inj SUBQ SCH ×2 (08:34→20:41)
[2020-06-07 08:51] LABS: ANION GAP 10 mmol/L (5-15); BLOOD UREA NITROGEN 22 mg/dL (7-18); CALCIUM 9.3 MG/DL (8.5-10.1); CARBON DIOXIDE 23 MMOL/L (21-32); CHLORIDE 101 MMOL/L (98-107); CREATININE 2.3 MG/DL (0.55-1.30); POTASSIUM 4.2 MMOL/L (3.5-5.1); SODIUM 134 MMOL/L (136-145)
[2020-06-07 10:07] LABS: ALANINE AMINOTRANSFERASE 23 U/L (12-78); ALBUMIN 2.5 G/DL (3.4-5.0); ALKALINE PHOSPHATASE 87 U/L (46-116); ASPARTATE AMINO TRANSFERASE 35 U/L (15-37); BILIRUBIN,DIRECT 0.8 MG/DL (0.0-0.3); BILIRUBIN,TOTAL 1.5 MG/DL (0.2-1.0); PHOSPHORUS 2.1 MG/DL (2.5-4.9)
[2020-06-07 12:01] VITALS: BP 152/91
[2020-06-07] MEDS: D5NS 1,000 ML IV SCH (14:00)
--- NOTE | 2020-06-07 14:00 | Nephrology Progress Note ---
Assessment/Plan Problem List: (1) CARLITOS (acute kidney injury) Assessment: Serum creatinine rising from 2 to 2.3 (2) Renal failure (ARF), acute on chronic (3) UTI (urinary tract infection) (4) History of urostomy (5) Bladder cancer Assessment CARLITOS UTI Bladder cancer, status post urostomy Plan COVERAGE FOR DR STEVAN RAY In view of mild hyponatremia will change to IV fluid to D5 normal saline Add Protonix and stool softeners Continue to monitor renal parameters Waiting for urology evaluation Suggest adjustment of Zosyn dose for renal failure Subjective ROS Limited/Unobtainable: No Constitutional: Reports: malaise, other - Denies any aches or pains Objective Objective Last 24 Hour Vital Signs Date Time Temp Pulse Resp B/P (MAP) Pulse Ox O2 Delivery O2 Flow Rate FiO2 06/07/20 12:01 96.7 89 19 152/91 (111) 94 06/07/20 12:00 100 06/07/20 09:00 Room Air 06/07/20 08:00 97 06/07/20 08:00 97.8 81 19 136/87 (103) 98 06/07/20 04:00 98.0 105 20 119/72 (88) 98 06/07/20 04:00 103 06/07/20 00:00 107 06/07/20 00:00 98.4 113 21 120/70 (87) 97 06/06/20 21:00 Room Air 06/06/20 20:00 98.0 111 21 140/80 (100) 96 06/06/20 20:00 112 06/06/20 18:45 83 06/06/20 16:31 102 06/06/20 16:01 100 19 138/81 (100) 97 Intake and Output 06/06/20 06/07/20 19:00 07:00 Intake Total 480 ml 600 ml Output Total 400 ml 320 ml Balance 80 ml 280 ml Intake Oral 480 ml 600 ml Output Urine Total 400 ml 320 ml Laboratory Tests 06/06/20 16:00: Urine Random Sodium 36, Urine Creatinine 114.1 06/07/20 07:40: White Blood Count 10.9H, Red Blood Count 4.65L, Hemoglobin 14.0L, Hematocrit 44.5, Mean Corpuscular Volume 96, Mean Corpuscular Hemoglobin 30.2, Mean Corpuscular Hemoglobin Concent 31.6L, Red Cell Distribution Width 13.4, Platelet Count 138L, Mean Platelet Volume 9.2, Neutrophils (%) (Auto) , Lymphocytes (%) (Auto) , Monocytes (%) (Auto) , Eosinophils (%) (Auto) , Basophils (%) (Auto) , Differential Total Cells Counted 100, Neutrophils % ( Manual) 87H, Lymphocytes % (Manual) 8L, Monocytes % (Manual) 5, Eosinophils % ( Manual) 0, Basophils % (Manual) 0, Band Neutrophils 0, Platelet Estimate DecreasedL, Platelet Morphology Normal, Red Blood Cell Morphology Normal, Sodium Level 134L, Potassium Level 4.2, Chloride Level 101, Carbon Dioxide Level 23, Anion Gap 10, Blood Urea Nitrogen 22H, Creatinine 2.3H, Estimat Glomerular Filtration Rate 34.4, Glucose Level 141H, Hemoglobin A1c 6.0, Uric Acid 3.5, Calcium Level 9.3, Phosphorus Level 2.1L, Magnesium Level 2.0, Total Bilirubin 1.5H, Direct Bilirubin 0.8H, Aspartate Amino Transf (AST/SGOT) 35, Alanine Aminotransferase (ALT/SGPT) 23, Alkaline Phosphatase 87, Total Protein 7.7, Albumin 2.5L, Vitamin D 25-Hydroxy [Pending], 25-Hydroxy Vitamin D2 [ Pending], 25-Hydroxy Vitamin D3 [Pending] Height (Feet): 6 Weight (Pounds): 211 General Appearance: no apparent distress Cardiovascular: tachycardia Respiratory/Chest: decreased breath sounds Abdomen: distended Maxwell Webster MD Jun 07, 2020 14:00
[2020-06-07 16:00] VITALS: BP 149/81
--- NOTE | 2020-06-07 16:45 | Consultation ---
DATE OF CONSULTATION: 06/07/2020 CONSULTING PHYSICIAN: Jhon Sparks MD. REFERRING PHYSICIAN: Pasha Rodriguez MD. REASON FOR CONSULTATION: Evaluation of nephrolithiasis, . HISTORY OF PRESENT ILLNESS: This is a 70-year-old gentleman. He has a history of a bladder cancer. He has had a cystectomy with ileal conduit urinary diversion about 4 years ago. He came to the ER with tremors, was having left flank pain. He had a workup including a CT scan that showed multiple stones of the left ureter with hydronephrosis. He also noted to have UTI, as well as acute kidney injury and he has blood cultures that are positive. Urology evaluation requested. PAST MEDICAL HISTORY: Significant for above. PAST SURGICAL HISTORY: As above. MEDICATIONS: Current medication list in the hospital was reviewed. ALLERGIES: No known drug allergies. PHYSICAL EXAMINATION: GENERAL: The patient is well-developed and well-nourished male, no acute distress. VITAL SIGNS: Temperature is 97.8, blood pressure 136/87, pulse 97, respirations 19. HEENT: Normocephalic. NECK: Supple. ABDOMEN: Soft. There is mild left CVA tenderness. There is a urostomy back in the right lower quadrant. LABORATORY DATA: UA showed 20 to 30 rbc's, too numerous count wbc's, moderate bacteria with 3+ protein. White count is 10.9, hemoglobin is 14.0, platelets 138. BUN 22, creatinine 2.3. I do not know what his baseline creatinine he had. Urine culture shows gram-negative bacillus. Blood culture, gram-negative bacillus. DIAGNOSTIC IMAGING STUDIES: The patient has a CT scan of the abdomen and pelvis, there was mention of 7 mm stone of the left proximal ureter as well as other 5 mm calculus in the ureter and a moderate left hydronephrosis and another 5 mm stone in the urostomy pouch, bilateral intrarenal calculi. There was mention of left-sided periaortic lymphadenopathy which may be concerning for metastatic disease. IMPRESSION: 1. Acute kidney injury. 2. Hydronephrosis. 3. Colic history. 4. Nephrolithiasis. 5. Bladder cancer history. 6. UTI, colonized. 7. Sepsis. 8. Hematuria. 9. Proteinuria. PLAN AND DISCUSSION: Again, the patient does have positive urine and blood cultures likely consistent with urosepsis. He does have multiple stones of the left kidney with hydronephrosis on the left side. He does have a urostomy and because of that, retrograde access from below would not be possible and at this time I would recommend placing a nephrostomy tube to undivert the left side after which his infection has cleared he can have treatment of his stones electively. He does have some mild hydro on the right, which could be because of reflux. He is to continue with antibiotics as ordered. His renal function will be monitored. I will discuss this with Dr. Cochran. Thank you for this consultation. Jhon Sparks M.D. DR: Mick JOB#: [id number] CC:
[2020-06-07] MEDS: Docusate 100mg cap ORAL SCH (17:39)
--- NOTE | 2020-06-07 18:46 | NUR ---
Nurses Note PT will be NPO come midnight for left nephrostomy surgery tomorrow.
--- NOTE | 2020-06-07 19:25 | NUR ---
Hand off Report given to SUGAR Espinosa. Patient is on the chair, awake on stable condition, plan of care endersed.
--- NOTE | 2020-06-07 19:30 | NUR ---
NURSE NOTES: Report received from Del WOOTEN. Patient is awake and alert x 4 currently sitting in chair. Endorsed to Jesús WOOTEN that patient is steady on feet and able to ambulate independently. Patient noted to be on room air, denies chest pain and shortness of breath at this time. Patient noted to have right hand 22 kyle IV access with fluids running per MD orders. Patient noted to have urostomy on right side. Endorsed that patient is to be NPO at midnight due to nephrostomy placement tomorrow. Noted that under other nursing orders Doctor Sparks would like procedure to be done by IR. Jesús WOOTEN communicated this to Alicia WOOTEN. Will have patient NPO at midnight and call IR. Call light in reach, bed locked, and in lowest position. Will continue to follow plan of care. Addendum: 06/07/20 at 2006 by Jesús Marcus RN Report received from Bijan WOOTEN.
[2020-06-07 20:00] VITALS: BP 130/79
[2020-06-08] VITALS (11 sets, daily range): BP systolic 109–169; BP diastolic 72–98
[2020-06-08] MEDS: D5NS 1,000 ML IV SCH ×3 (00:31→21:12)
[2020-06-08 07:24] LABS: HEMATOCRIT 44.9 % (42.0-52.0); HEMOGLOBIN 14.1 G/DL (14.2-18.0); MEAN CORPUSCULAR VOLUME 96 FL (80-99); PLATELET COUNT 193 K/UL (150-450); RED CELL DISTRIBUTION WIDTH 13.9 % (11.6-14.8); WHITE BLOOD COUNT 15.3 K/UL (4.8-10.8)
--- NOTE | 2020-06-08 07:30 | NUR ---
NURSE NOTES: Received pt from SUGAR Espinosa, pt is awake and alert, pt is in RA, no SOB or acute respiratory distress noted. pt is NPO due to nephrostomy, pt is on continues heart monitoring. pt has intact IV access RH 22g is running well. pt has urostomy R side in place is working well. all needs attended, bed is locked and is in the lowest position, call light within easy reach. will continue to monitor.
--- NOTE | 2020-06-08 07:31 | NUR ---
HAND-OFF: Report given to Alexandria WOOTEN. Endorsed to follow up with MD about possible procedure. Patient currently in stable condition.
--- NOTE | 2020-06-08 08:32 | NUR ---
CASE MANAGEMENT:REVIEW 06/08/20 SI: NEPHROLITHIASIS. HYDRONEPHROSIS SEPSIS D/T BACTEREMIA AND UTI. H/O BLADDER CANCER 98.1 87 20 145/89 100% ON RA WBC+15.3 IS: IV ZOSYN Q12 IVF@100/HR HEPARIN SQ Q12 : TELEMETRY STATUS DCP: FROM HOME PLAN: NPO
[2020-06-08 08:35] LABS: ALANINE AMINOTRANSFERASE 24 U/L (12-78); ALKALINE PHOSPHATASE 98 U/L (46-116); ANION GAP 12 mmol/L (5-15); ASPARTATE AMINO TRANSFERASE 29 U/L (15-37); BILIRUBIN,TOTAL 1.2 MG/DL (0.2-1.0); CARBON DIOXIDE 22 MMOL/L (21-32); CHLORIDE 96 MMOL/L (98-107); GAMMA GLUTAMYL TRANSPEPTIDASE 5 U/L (5-85); HDL CHOLESTEROL 4 MG/DL (40-60); PHOSPHORUS 2.1 MG/DL (2.5-4.9); POTASSIUM 4.4 MMOL/L (3.5-5.1); SODIUM 129 MMOL/L (136-145)
[2020-06-08 08:56] LABS: ALBUMIN 2.6 G/DL (3.4-5.0); BLOOD UREA NITROGEN 23 mg/dL (7-18); CALCIUM 9.3 MG/DL (8.5-10.1); CHOLESTEROL 173 MG/DL (< 200); TRIGLYCERIDES 405 MG/DL (30-150)
[2020-06-08] MEDS: Docusate 100mg cap ORAL SCH ×4 (09:00→17:26)
[2020-06-08] MEDS: Heparin 5000 units/ml inj SUBQ SCH ×3 (09:00→21:00)
--- NOTE | 2020-06-08 09:03 | Urology Progress Note ---
Assessment/Plan Assessment/Plan: 1. Acute kidney injury. 2. Hydronephrosis. 3. Colic history. 4. Nephrolithiasis. 5. Bladder cancer history. 6. UTI, colonized. 7. Sepsis. 8. Hematuria. 9. Proteinuria. left hydro secondary to ureteral calc pt with urostomy, unable to do retrograde approach proceed with left nephrostomy abx as ordered tx of stones later electively consider med/onc evaluation at some point f/u on blood cx d/w Dr. Cochran d/w nursing staff fully Subjective Allergies: Coded Allergies: No Known Allergies (Unverified , 06/05/20) Subjective all noted, feels fair Objective Last 24 Hour Vital Signs Date Time Temp Pulse Resp B/P (MAP) Pulse Ox O2 Delivery O2 Flow Rate FiO2 06/08/20 08:00 98.1 87 20 145/89 (107) 100 06/08/20 04:00 89 06/08/20 04:00 98.0 98 18 153/82 (105) 98 06/08/20 00:00 92 06/08/20 00:00 98.5 101 18 145/72 (96) 95 06/07/20 21:00 Room Air 06/07/20 20:00 101 06/07/20 20:00 98.2 98 18 130/79 (96) 96 06/07/20 16:00 104 06/07/20 16:00 98.7 104 20 149/81 (103) 98 06/07/20 12:01 96.7 89 19 152/91 (111) 94 06/07/20 12:00 100 Intake and Output 06/07/20 06/08/20 19:00 07:00 Intake Total 580 ml 710.0 ml Output Total 400 ml 400 ml Balance 180 ml 310.0 ml Intake Oral 480 ml IV Total 100 ml 710.0 ml Output Urine Total 400 ml 400 ml Microbiology Date/Time Source Procedure Growth Status 06/05/20 12:05 Blood Blood Culture - Preliminary Gram Negative Bacillus 1 Resulted 06/05/20 12:05 Nasopharynx SARS-CoV-2 RdRp Gene Assay - Final Complete 06/06/20 04:00 Urine,Clean Catch Urine Culture - Final Mixed Urogenital Contaminants Complete Current Medications Medications (Trade) Dose Ordered Sig/Kelin Route PRN Reason Start Time Stop Time Status Last Admin Dose Admin Acetaminophen (Tylenol) 650 mg Q4H PRN ORAL Mild Pain (Pain Scale 1-3) 06/05/20 17:45 07/05/20 17:44 Clonidine HCl (Catapres Tab) 0.1 mg Q4H PRN ORAL For BP over 165 systolic 06/07/20 14:15 09/05/20 14:14 Dextrose (Dextrose 50%) 25 ml Q30M PRN IV Hypoglycemia 06/05/20 17:45 09/03/20 17:44 Dextrose (Dextrose 50%) 50 ml Q30M PRN IV Hypoglycemia 06/05/20 17:45 09/03/20 17:44 Dextrose/Sodium Chloride 1,000 ml @ 100 mls/hr Q10H IV 06/07/20 14:00 07/07/20 13:59 06/08/20 00:31 Docusate Sodium (Colace) 100 mg THREE TIMES A DAY ORAL 06/07/20 18:00 07/07/20 17:59 06/07/20 17:39 Heparin Sodium (Porcine) (Heparin 5000 units/ml) 5,000 units EVERY 12 HOURS SUBQ 06/05/20 21:00 07/20/20 20:59 06/07/20 08:34 Pantoprazole (Protonix) 40 mg EVERY 12 HOURS ORAL 06/07/20 21:00 07/07/20 20:59 06/07/20 20:43 Piperacillin Sod/ Tazobactam Sod 3.375 gm/Sodium Chloride 110 ml @ 27.5 mls/hr Q12HR IVPB 06/07/20 21:00 06/13/20 16:59 06/07/20 20:43 Laboratory Tests 06/08/20 05:33: White Blood Count 15.3H, Red Blood Count 4.70, Hemoglobin 14.1L, Hematocrit 44.9 , Mean Corpuscular Volume 96, Mean Corpuscular Hemoglobin 29.9, Mean Corpuscular Hemoglobin Concent 31.3L, Red Cell Distribution Width 13.9, Platelet Count 193, Mean Platelet Volume 9.5, Neutrophils (%) (Auto) , Lymphocytes (%) (Auto) , Monocytes (%) (Auto) , Eosinophils (%) (Auto) , Basophils (%) (Auto) , Neutrophils % (Manual) [Pending], Lymphocytes % (Manual) [Pending], Platelet Estimate [Pending], Platelet Morphology [Pending], Sodium Level [Pending], Potassium Level [Pending], Chloride Level [Pending], Carbon Dioxide Level [Pending], Blood Urea Nitrogen [Pending], Creatinine [Pending], Estimat Glomerular Filtration Rate [Pending], Glucose Level [Pending], Hemoglobin A1c 6.0, Uric Acid [Pending], Calcium Level [Pending], Phosphorus Level [Pending], Magnesium Level [Pending], Total Bilirubin [Pending], Gamma Glutamyl Transpeptidase [Pending], Aspartate Amino Transf (AST/SGOT) [Pending], Alanine Aminotransferase (ALT/SGPT) [Pending], Alkaline Phosphatase [Pending], C -Reactive Protein, Quantitative [Pending], Pro-B-Type Natriuretic Peptide [ Pending], Total Protein [Pending], Albumin [Pending], Globulin [Pending], Triglycerides Level [Pending], Cholesterol Level [Pending], LDL Cholesterol [ Pending], HDL Cholesterol [Pending], Cholesterol/HDL Ratio [Pending], Thyroid Stimulating Hormone (TSH) [Pending] Height (Feet): 6 Weight (Pounds): 211 Objective exam stable Jhon Sparks MD Jun 08, 2020 09:03
[2020-06-08 09:15] LABS: BILIRUBIN,DIRECT 0.8 MG/DL (0.0-0.3)
[2020-06-08] MEDS: Piperacillin/Tazobactam 3.375 GM in NS 110 ML IVPB SCH ×2 (10:00→21:12)
--- NOTE | 2020-06-08 10:56 | NUR ---
NURSE NOTES: Dr Sparks called and ordered left nephrostomy and renal US, noted and carried out, radiology John is aware, will come in the afternoon.
[2020-06-08] MEDS ORDERED: Lidocaine 1% Plain 30 ml INJ ONE (11:00)
[2020-06-08] MEDS ORDERED: Isovue-300 100ml vial INJ SCH (11:00)
--- NOTE | 2020-06-08 11:00 | NUR ---
NURSE NOTES: pt signed consent form for nephrostomy. will continue to monitor.
--- NOTE | 2020-06-08 11:37 | NUR ---
NURSE NOTES: Dr Cochran visited pt and is aware about WBC 15.3 NA 129 and other lab results and V/S, no new order to RN. Will continue to monitor.
--- NOTE | 2020-06-08 11:52 | Nephrology Progress Note ---
Assessment/Plan Problem List: (1) UTI (urinary tract infection) (2) Renal failure (ARF), acute on chronic (3) Bladder cancer (4) Sepsis (5) Gram-negative bacteremia (6) Obstructive uropathy (7) Nephrolithiasis (8) Hyponatremia Plan continue IVF abxs Await nephrostomy follow BMP check Vit D Subjective Subjective feels ok Objective Objective Last 24 Hour Vital Signs Date Time Temp Pulse Resp B/P (MAP) Pulse Ox O2 Delivery O2 Flow Rate FiO2 06/08/20 09:00 Room Air 06/08/20 08:00 98.1 87 20 145/89 (107) 100 06/08/20 07:49 86 06/08/20 04:00 89 06/08/20 04:00 98.0 98 18 153/82 (105) 98 06/08/20 00:00 92 06/08/20 00:00 98.5 101 18 145/72 (96) 95 06/07/20 21:00 Room Air 06/07/20 20:00 101 06/07/20 20:00 98.2 98 18 130/79 (96) 96 06/07/20 16:00 104 06/07/20 16:00 98.7 104 20 149/81 (103) 98 06/07/20 12:01 96.7 89 19 152/91 (111) 94 06/07/20 12:00 100 Intake and Output 06/07/20 06/08/20 19:00 07:00 Intake Total 580 ml 710.0 ml Output Total 400 ml 400 ml Balance 180 ml 310.0 ml Intake Oral 480 ml IV Total 100 ml 710.0 ml Output Urine Total 400 ml 400 ml Laboratory Tests 06/08/20 05:33: White Blood Count 15.3H, Red Blood Count 4.70, Hemoglobin 14.1L, Hematocrit 44.9 , Mean Corpuscular Volume 96, Mean Corpuscular Hemoglobin 29.9, Mean Corpuscular Hemoglobin Concent 31.3L, Red Cell Distribution Width 13.9, Platelet Count 193, Mean Platelet Volume 9.5, Neutrophils (%) (Auto) , Lymphocytes (%) (Auto) , Monocytes (%) (Auto) , Eosinophils (%) (Auto) , Basophils (%) (Auto) , Differential Total Cells Counted 100, Neutrophils % ( Manual) 89H, Lymphocytes % (Manual) 3L, Monocytes % (Manual) 2, Eosinophils % ( Manual) 0, Basophils % (Manual) 0, Band Neutrophils 6, Platelet Estimate Adequate, Platelet Morphology Normal, Red Blood Cell Morphology Normal, Sodium Level 129L, Potassium Level 4.4, Chloride Level 96L, Carbon Dioxide Level 22, Anion Gap 12, Blood Urea Nitrogen 23H, Creatinine 2.0H, Estimat Glomerular Filtration Rate 40.5, Glucose Level 161H, Hemoglobin A1c 6.0, Uric Acid 0.2L, Calcium Level 9.3, Phosphorus Level 2.1L, Magnesium Level 2.2, Total Bilirubin 1.2H, Direct Bilirubin 0.8H, Gamma Glutamyl Transpeptidase 5, Aspartate Amino Transf (AST/SGOT) 29, Alanine Aminotransferase (ALT/SGPT) 24, Alkaline Phosphatase 98, C-Reactive Protein, Quantitative 4.8H, Pro-B-Type Natriuretic Peptide 203H, Total Protein 8.3H, Albumin 2.6L, Globulin 5.7, Triglycerides Level 405H, Cholesterol Level 173, LDL Cholesterol 31, HDL Cholesterol 4L, Cholesterol/HDL Ratio 43.3H, Thyroid Stimulating Hormone (TSH) 0.443 Height (Feet): 6 Weight (Pounds): 211 Cardiovascular: normal rate Respiratory/Chest: lungs clear Extremities: no edema Fidel Osborne MD Jun 08, 2020 11:52
--- NOTE | 2020-06-08 11:54 | NUR ---
*-* INSURANCE *-* ALL AVAILABLE CLINICALS AND REVIEWS HAVE BEEN FAXED TO: [facility]:CRIS REF# [id number] P: [phone] F: [phone]
--- NOTE | 2020-06-08 12:34 | NUR ---
patient had episode of 2nd degree HB 2:1 last night, DR Cochran made aware and Dr Prince was asked for consult and was aware.
[2020-06-08] MEDS ORDERED: fentaNYL 100 mcg/2 mL IV PRN (12:45)
[2020-06-08] MEDS ORDERED: Lidocaine 1% Plain 30 ml INJ PRN (12:45)
--- NOTE | 2020-06-08 12:47 | NUR ---
NURSE NOTES: Dr Silverio visited pt and saw strip 1240 for Ignacio tach, put consult with Dr Sy. Dr Sy is aware. will continue to monitor. Addendum: 06/08/20 at 1650 by Alexandria Castillo RN ERROR, WRONG PT.
--- NOTE | 2020-06-08 13:00 | NUR ---
NURSE NOTES: PT IS STABLE, LEFT UNIT FOR NEPHROSTOMY.
[2020-06-08] MEDS ORDERED: Omnipaque-300 100ml vial INJ PRN (13:15)
--- NOTE | 2020-06-08 13:51 | Pre-Procedure Note/Attestation ---
Pre-Procedure Note/Attestation Complete Prior to Procedure Planned Procedure: left Procedure Narrative: nephrostomy Indications for Procedure Pre-Operative Diagnosis: urosepsis and stone Attestation I attest that I discussed the nature of the procedure; its benefits; risks and complications; and alternatives (and the risks and benefits of such alternatives ), prior to the procedure, with the patient (or the patient's legal inside sales account representative). I attest that, if there was a reasonable possibility of needing a blood transfusion, the patient (or the patient's legal inside sales account representative) was given the [facility] standardized written summary, pursuant to the Henri Darwin Blood Safety Act ([place] Health and Safety Code # 1645, as amended). I attest that I re-evaluated the patient just prior to the surgery and that there has been no change in the patient's H&P, except as documented below: Garfield Gr MD Jun 08, 2020 13:51
--- NOTE | 2020-06-08 14:07 | Pulmonology Progress Note ---
Subjective ROS Limited/Unobtainable: No Interval Events: Looking and feeling better Constitutional: Reports: no symptoms HEENT: Repors: no symptoms Respiratory: Reports: no symptoms Cardiovascular: Reports: no symptoms Gastrointestinal/Abdominal: Reports: no symptoms Allergies: Coded Allergies: No Known Allergies (Unverified , 06/05/20) Objective Last 24 Hour Vital Signs Date Time Temp Pulse Resp B/P (MAP) Pulse Ox O2 Delivery O2 Flow Rate FiO2 06/08/20 13:35 91 22 168/93 (118) 99 06/08/20 13:20 91 18 2.0 06/08/20 13:14 98.1 93 18 169/98 (121) 95 06/08/20 11:53 98.1 84 20 150/95 (113) 100 06/08/20 11:44 88 06/08/20 09:00 Room Air 06/08/20 08:00 98.1 87 20 145/89 (107) 100 06/08/20 07:49 86 06/08/20 04:00 89 06/08/20 04:00 98.0 98 18 153/82 (105) 98 06/08/20 00:00 92 06/08/20 00:00 98.5 101 18 145/72 (96) 95 06/07/20 21:00 Room Air 06/07/20 20:00 101 06/07/20 20:00 98.2 98 18 130/79 (96) 96 06/07/20 16:00 104 06/07/20 16:00 98.7 104 20 149/81 (103) 98 Intake and Output 06/07/20 06/08/20 19:00 07:00 Intake Total 580 ml 710.0 ml Output Total 400 ml 400 ml Balance 180 ml 310.0 ml Intake Oral 480 ml IV Total 100 ml 710.0 ml Output Urine Total 400 ml 400 ml General Appearance: no acute distress HEENT: normocephalic Respiratory: chest wall non-tender, lungs clear Cardiovascular: normal peripheral pulses, normal rate Abdomen: normal bowel sounds Microbiology Date/Time Source Procedure Growth Status 06/06/20 04:00 Urine,Clean Catch Urine Culture - Final Mixed Urogenital Contaminants Complete Laboratory Tests 06/08/20 05:33: White Blood Count 15.3H, Red Blood Count 4.70, Hemoglobin 14.1L, Hematocrit 44.9 , Mean Corpuscular Volume 96, Mean Corpuscular Hemoglobin 29.9, Mean Corpuscular Hemoglobin Concent 31.3L, Red Cell Distribution Width 13.9, Platelet Count 193, Mean Platelet Volume 9.5, Neutrophils (%) (Auto) , Lymphocytes (%) (Auto) , Monocytes (%) (Auto) , Eosinophils (%) (Auto) , Basophils (%) (Auto) , Differential Total Cells Counted 100, Neutrophils % ( Manual) 89H, Lymphocytes % (Manual) 3L, Monocytes % (Manual) 2, Eosinophils % ( Manual) 0, Basophils % (Manual) 0, Band Neutrophils 6, Platelet Estimate Adequate, Platelet Morphology Normal, Red Blood Cell Morphology Normal, Sodium Level 129L, Potassium Level 4.4, Chloride Level 96L, Carbon Dioxide Level 22, Anion Gap 12, Blood Urea Nitrogen 23H, Creatinine 2.0H, Estimat Glomerular Filtration Rate 40.5, Glucose Level 161H, Hemoglobin A1c 6.0, Uric Acid 0.2L, Calcium Level 9.3, Phosphorus Level 2.1L, Magnesium Level 2.2, Total Bilirubin 1.2H, Direct Bilirubin 0.8H, Gamma Glutamyl Transpeptidase 5, Aspartate Amino Transf (AST/SGOT) 29, Alanine Aminotransferase (ALT/SGPT) 24, Alkaline Phosphatase 98, C-Reactive Protein, Quantitative 4.8H, Pro-B-Type Natriuretic Peptide 203H, Total Protein 8.3H, Albumin 2.6L, Globulin 5.7, Triglycerides Level 405H, Cholesterol Level 173, LDL Cholesterol 31, HDL Cholesterol 4L, Cholesterol/HDL Ratio 43.3H, Thyroid Stimulating Hormone (TSH) 0.443 Current Medications Medications (Trade) Dose Ordered Sig/Kelin Route PRN Reason Start Time Stop Time Status Last Admin Dose Admin Acetaminophen (Tylenol) 650 mg Q4H PRN ORAL Mild Pain (Pain Scale 1-3) 06/05/20 17:45 07/05/20 17:44 Clonidine HCl (Catapres Tab) 0.1 mg Q4H PRN ORAL For BP over 165 systolic 06/07/20 14:15 09/05/20 14:14 Dextrose (Dextrose 50%) 25 ml Q30M PRN IV Hypoglycemia 06/05/20 17:45 09/03/20 17:44 Dextrose (Dextrose 50%) 50 ml Q30M PRN IV Hypoglycemia 06/05/20 17:45 09/03/20 17:44 Dextrose/Sodium Chloride 1,000 ml @ 100 mls/hr Q10H IV 06/07/20 14:00 07/07/20 13:59 06/08/20 00:31 Docusate Sodium (Colace) 100 mg THREE TIMES A DAY ORAL 06/07/20 18:00 07/07/20 17:59 06/07/20 17:39 Fentanyl Citrate (Sublimaze 100 mcg/2 mL) 100 mcg ONCE PRN IV radiology procedure 06/08/20 12:45 06/08/20 23:59 Heparin Sodium (Porcine) (Heparin 5000 units/ml) 5,000 units EVERY 12 HOURS SUBQ 06/05/20 21:00 07/20/20 20:59 06/07/20 08:34 Iohexol (OMNIPAQUE-300 100ml) 100 ml ONCE PRN INJ radiology procedure 06/08/20 13:15 06/08/20 23:59 Lidocaine HCl (Xylocaine 1% 30ml) 30 ml ONCE PRN INJ radiology procedure 06/08/20 12:45 06/08/20 23:59 Pantoprazole (Protonix) 40 mg EVERY 12 HOURS ORAL 06/07/20 21:00 07/07/20 20:59 06/07/20 20:43 Piperacillin Sod/ Tazobactam Sod 3.375 gm/Sodium Chloride 110 ml @ 27.5 mls/hr Q12HR IVPB 06/07/20 21:00 06/13/20 16:59 06/08/20 10:00 Assessment/Plan Assessment/Plan IMPRESSION: 1. Urosepsis. 2. Bladder carcinoma. 3. Urostomy. DISCUSSION: Consulted nephrology Has gram negative rods in urine and blood On Zosyn Feeling better SaRS rapid test negative For nephrostomy tube today Kendy Peñaloza Omar Syed MD Jun 08, 2020 14:07
[2020-06-08] MEDS ORDERED: ceFAZolin sod 1 GM in D5W 55 ML IVPB ONE (14:15)
--- NOTE | 2020-06-08 14:34 | Moderate Sedation - Procedural ---
Moderate Sedation Patient History Allergies: Coded Allergies: No Known Allergies (Unverified , 06/05/20) Pre-Procedural Mod Sedation Date: Jun 08, 2020 Pre-Assessment Time: 14:00 Pre-Sedation Assessment: Eval. Immed. Prior to Sed Airway Assessment (Malampati): III Evaluation Hx of untoward rxns to mod sed: No Procedures/Plans: Radiology Plan for Moderate Sedation: Fentanyl ASA Score: III Informed Consent The nature of the procedure/sedation; its benefits; risks and complications; and alternatives (and the risks and benefits of such alternatives) were discussed with the patient (or their legal customer account representative), prior to the procedure. All questions were answered to the patient's (or their legal customer account representative's) satisfaction and the patient (or their legal customer account representative) gave informed consent to the procedure. I attest that I re-evaluated the patient just prior to the surgery and that there has been no change in the patient's H&P, except as documented below: Post Procedure Assessment Post Procedure TIme: 14:35 Communication: No Apparent Limitation Mental Status: Awake Respiration: Unlabored Skin Condition: WNL Adomen: WNL Nausea: YES Vomiting: YES - was vomiting before the procedure started; 4 mg zofran given Garfield Gr MD Jun 08, 2020 14:34
--- NOTE | 2020-06-08 14:39 | Brief Operative Note ---
Immediate Post Operative Note Operative Note Pre-op Diagnosis: urosepsis and stone Procedure: L nephrostomy Post-op Diagnosis: same Post-op Diagnosis: same as pre-op Findings: consistent w/pre-op dx studies Surgeon: Triston Lyles Anesthesia: local, moderate sedation Specimen: yes - urine sample sent to lab for micro Complications: none Condition: stable Fluids: none Drains: other - 8.5 F neprhostomy Implant(s) used?: No Garfield Lyles MD Jun 08, 2020 14:39
--- NOTE | 2020-06-08 14:47 | Diagnostic Imaging Report ---
Indication: Abnormal renal function tests, prior CT scan demonstrating obstructive uropathy Technique: Grayscale and duplex images of the kidneys, retroperitoneum, and bladder were obtained. Comparison: CT scan dated 06/05/2020 Findings: Right kidney measures 12 point cm in length. Left kidney measures 11.6 cm in length. Both kidneys demonstrate normal echogenicity. There is mild right and moderate left hydronephrosis. To shadowing echogenic foci are seen in the left renal collecting system. There is a urostomy, the pouch of which is somewhat distended.. Normal inferior vena cava. Bladder is absent, patient status post cystectomy. Impression: Moderate left hydronephrosis, demonstrated to be due to an obstructive left proximal ureteral calculus Nonobstructive left intrarenal calculi Mild right hydronephrosis, also reported on recent CT scan Incidental finding of left upper pole renal cyst.
--- NOTE | 2020-06-08 15:03 | NUR ---
ORDERED BY DR. JAIME SANCHEZ 4 MG. IVP GIVEN 1415PM ANCEF 1 GM IV GIVEN LICOCAINE 1%/30 ML. -10 CC LOCALLY 1355 OMNIPAQUE 15 CC LOCALLY AT 1355
--- NOTE | 2020-06-08 16:59 | NUR ---
NURSE NOTES: Dr Sparks called and ordered to start diet for pt, noted and carried out.
--- NOTE | 2020-06-08 17:59 | Diagnostic Imaging Report ---
INDICATION: Obstructive uropathy of the left kidney, due to large proximal ureteral calculus diagnosed on recent CT scan TECHNIQUE: Relevant prior imaging studies reviewed. Informed consent obtained prior present of the procedure. Risks, including but not limited to hemorrhage, infection, kidney damage, moderate sedation risks discussed with patient, all questions answered. The indicated his willingness to proceed. Procedural timeout performed. Total sterile technique, including sterile gloves and hand hygiene, hat, mask, sterile gown, large sterile drape, sterile probe cover and gel and preparation with 2% chlorhexidine utilized. Local anesthesia with 1% lidocaine. Under real-time ultrasound guidance, a 21-gauge [place] stick needle was used axis a posterior lower pole calyx. Spontaneous return of urine was observed. Contrast was injected, opacifying the left renal collecting system. 0.018 guidewire inserted, followed by insertion of the 6 Indonesian coaxial [place] stick introducer, removal of dilator and stiffener, passage 0.035 guidewire with the 0.018 guidewire left in as a safety wire. The introducer was then removed. A 5 Indonesian Kumpe catheter was used to make an attempt at probing pass the proximal ureteral calculus. This was unsuccessful, so the guidewire was coiled in the upper pole collecting system. Over this was passed an 8.5 Indonesian multipurpose drainage catheter. This was coiled in the upper pole collecting system. Contrast was injected and then aspirated, confirming placement of the catheter within the renal collecting system. The urine that was returned was grossly purulent. A specimen was obtained and sent to the lab for microbial analysis. The patient tolerated the procedure well, without immediate complication. Fluoroscopy time: 192.8 seconds Total dose: 1.91 mGym2 Total number of images: 6 COMPARISON: None FINDINGS: Intraprocedural sonography confirms moderate hydronephrosis, needle tip placement within a posterior left lower pole calyx. Intraprocedural saved fluoroscopic images confirm opacification of the renal collecting system on original access. Some extravasated contrast is seen around the lower pole. Subsequent images confirm wire in the proximal right ureter, successful contrast injection and subsequent aspiration indicating placement of the catheter within the collecting system. Initial images demonstrate the radiopaque calculus in the proximal left ureter. No contrast is seen to pass beyond the calculus. IMPRESSION: Successful placement of left nephrostomy tube for management of obstructive uropathy, as described
--- NOTE | 2020-06-08 18:58 | NUR ---
NURSE NOTES: Dr Sparks visited pt and checked nephrostomy, he stated every thing is ok, no new order to RN. Will continue to monitor.
--- NOTE | 2020-06-08 19:42 | NUR ---
HAND-OFF: Report given to SUGAR Kim. Pt is awake and stable, endorsed plan of care.
--- NOTE | 2020-06-08 20:00 | NUR ---
NURSE NOTES: Received patient report from SUGAR Ibrahim. Patient shows no signs of distress or pain at the time. Patient has Urostomy patent and draining. Patient AO x4. IV is patent and flushed. There are no signs of erythema, infiltration, or bleeding. Bed is in the lowest position, call light within reach, side rails up x 2, and bed alarm on. Will continue plan of care.
[2020-06-09] VITALS: BP 130/87
[2020-06-09] MEDS ORDERED: HydrALAZINE 10mg Tab ORAL PRN (02:30)
[2020-06-09 04:00] VITALS: BP 133/82
--- NOTE | 2020-06-09 04:32 | NUR ---
NURSE NOTES: EKG tracing done as Dr. Prince ordered, results are Sinus Rhythm.
--- NOTE | 2020-06-09 05:44 | Consultation ---
DATE OF CONSULTATION: 06/08/2020 CARDIOLOGY CONSULTATION CONSULTING PHYSICIAN: Faustino Prince M.D. REQUESTING PHYSICIAN: Jaya Cochran M.D. REASON FOR CONSULTATION: Heart block. HISTORY OF PRESENT ILLNESS: This is a 70-year-old male. He presented to the hospital with chills and left-sided flank pain. He has been noted to have a ureteral obstructing stone and urinary tract infection. He has required placement of a nephrostomy tube. Of concern is a prior history of bladder cancer and cystectomy in the past with diverting urostomy. Further urologic and renal workup is ongoing. Last evening, he had episodes of heart block, heart rates in the 40s. I have been asked to address these findings. He was asymptomatic with no apparent blood pressure abnormalities. The patient does not have any known history of cardiovascular disease. The cardiac strips were reviewed in detail. There appeared to be a second-degree AV block with 2 to 1 conduction. PAST MEDICAL HISTORY: As outlined above. Includes bladder cancer and prior cystectomy with history of urostomy and chronic kidney disease. CURRENT MEDICATIONS: Reviewed. No medications are noted with any negative chronotropic potential. ALLERGIES: None. FAMILY HISTORY: Noncontributory. SOCIAL HISTORY: Distant smoking history. No alcohol or substance abuse. REVIEW OF SYSTEMS: A 10-point review of systems performed. All systems negative other than noted above. Of note, there is no history of thyroid disorder. He had a recent TSH that was normal. PHYSICAL EXAMINATION: VITAL SIGNS: Blood pressure 141/82, pulse 68, and respiratory rate 18. HEENT: Conjunctivae are pink. Sclerae are anicteric. Oropharynx clear. NECK: Supple. No jugular venous distention. Thyroid not enlarged. Trachea midline. LUNGS: Clear. CARDIAC: Regular rhythm and rate. Normal S1, S2 with no murmur, rub or gallop. ABDOMEN: Soft and nontender. Left CVA tenderness noted. Catheter site without drainage or bleeding. EXTREMITIES: With trace edema. LABORATORY DATA: Reviewed. Notable for potassium 4.4, BUN 17, and creatinine 2.1. Magnesium 1.7. TSH 0.45. Calcium is 9.3 with albumin 2.4. IMPRESSION: 1. Episodes of asymptomatic self-limited second degree 2 to 1 AV block. These may likely be due to increased vagal tone associated with current pathology. 2. Obstructive uropathy. 3. Acute on chronic renal failure. 4. History of bladder cancer. 5. Urinary tract infection. 6. Borderline hypercalcemia. PLAN: 1. Hydration. 2. Monitor electrolytes. 3. Continue cardiac monitoring. 4. Check EKG. 5. Review echocardiogram for structural heart disease. 6. Further recommendations will follow. 7. Presently, no indication for pacemaker. Faustino Prince M.D. DR: Greer JOB#: [id number] CC:
[2020-06-09] MEDS: D5NS 1,000 ML IV SCH ×2 (05:58→13:04)
--- NOTE | 2020-06-09 07:25 | NUR ---
NURSE NOTES: Received pt from SUGAR Kim, pt is sleeping in bed, pt is in RA, no SOB or acute respiratory distress noted. pt is on continues heart monitoring. pt has intact IV access LH 22g is running well. pt has urostomy R side in place is working well. Pt has nephrostomy L side is working well. all needs attended, bed is locked and is in the lowest position, call light within easy reach. will continue to monitor.
--- NOTE | 2020-06-09 07:43 | NUR ---
HAND-OFF: Report given to SUGAR Ibrahim. Patient shows no signs of distress or pain at the time. Endorsed plan of care.
[2020-06-09 08:00] VITALS: BP 121/75
[2020-06-09] MEDS: Docusate 100mg cap ORAL SCH ×3 (08:42→17:56)
[2020-06-09] MEDS: Piperacillin/Tazobactam 3.375 GM in NS 110 ML IVPB SCH ×2 (08:42→20:34)
[2020-06-09] MEDS: Heparin 5000 units/ml inj SUBQ SCH ×2 (08:43→20:34)
--- NOTE | 2020-06-09 09:07 | Urology Progress Note ---
Assessment/Plan Assessment/Plan: 1. Acute kidney injury. 2. Hydronephrosis. 3. Colic history. 4. Nephrolithiasis. 5. Bladder cancer history. 6. UTI, colonized. 7. Sepsis. 8. Hematuria. 9. Proteinuria. left hydro secondary to ureteral calc pt with urostomy, unable to do retrograde approach left nephrostomy placed 06/08 hand irrigated and do PRN abx as ordered tx of stones later electively consider med/onc evaluation at some point f/u on blood cx d/w Dr. Cochran d/w nursing staff fully Subjective Allergies: Coded Allergies: No Known Allergies (Unverified , 06/05/20) Subjective all noted, feels fair, left nephrostomy placed, appreciate IR Objective Last 24 Hour Vital Signs Date Time Temp Pulse Resp B/P (MAP) Pulse Ox O2 Delivery O2 Flow Rate FiO2 06/09/20 08:00 100.2 91 20 121/75 (90) 97 06/09/20 04:00 93 06/09/20 04:00 98.9 90 18 133/82 (99) 98 06/09/20 00:00 90 06/09/20 00:00 98.8 92 18 130/87 (101) 98 06/08/20 21:00 Room Air 06/08/20 20:00 98.1 80 18 109/78 (88) 96 06/08/20 20:00 94 06/08/20 15:30 98.1 96 20 118/98 (105) 100 06/08/20 15:19 95 06/08/20 14:37 101 20 149/94 (112) 97 06/08/20 14:26 91 22 2.0 06/08/20 13:35 91 22 168/93 (118) 99 06/08/20 13:20 91 18 2.0 06/08/20 13:14 98.1 93 18 169/98 (121) 95 06/08/20 11:53 98.1 84 20 150/95 (113) 100 06/08/20 11:44 88 Intake and Output 06/08/20 06/09/20 19:00 07:00 Intake Total 400 ml 200 ml Output Total 35 ml 1200 ml Balance 365 ml -1000 ml Intake Oral 400 ml 200 ml Output Urine Total 1200 ml Other 35 ml # Voids 2 Microbiology Date/Time Source Procedure Growth Status 06/05/20 12:05 Blood Blood Culture - Preliminary Gram Negative Bacillus 1 Resulted 06/05/20 12:05 Nasopharynx SARS-CoV-2 RdRp Gene Assay - Final Complete 06/06/20 04:00 Urine,Clean Catch Urine Culture - Final Mixed Urogenital Contaminants Complete Current Medications Medications (Trade) Dose Ordered Sig/Kelin Route PRN Reason Start Time Stop Time Status Last Admin Dose Admin Acetaminophen (Tylenol) 650 mg Q4H PRN ORAL Mild Pain (Pain Scale 1-3) 06/05/20 17:45 07/05/20 17:44 Dextrose (Dextrose 50%) 25 ml Q30M PRN IV Hypoglycemia 06/05/20 17:45 09/03/20 17:44 Dextrose (Dextrose 50%) 50 ml Q30M PRN IV Hypoglycemia 06/05/20 17:45 09/03/20 17:44 Dextrose/Sodium Chloride 1,000 ml @ 100 mls/hr Q10H IV 06/07/20 14:00 07/07/20 13:59 06/08/20 21:12 Docusate Sodium (Colace) 100 mg THREE TIMES A DAY ORAL 06/07/20 18:00 07/07/20 17:59 06/09/20 08:42 Heparin Sodium (Porcine) (Heparin 5000 units/ml) 5,000 units EVERY 12 HOURS SUBQ 06/05/20 21:00 07/20/20 20:59 06/09/20 08:43 Hydralazine HCl (Apresoline) 10 mg Q6H PRN ORAL SBP over 150 06/09/20 02:30 09/07/20 02:29 Ondansetron HCl (Zofran) 4 mg Q6H PRN IVP Nausea & Vomiting 06/08/20 14:15 07/08/20 14:14 Pantoprazole (Protonix) 40 mg EVERY 12 HOURS ORAL 06/07/20 21:00 07/07/20 20:59 06/09/20 08:42 Piperacillin Sod/ Tazobactam Sod 3.375 gm/Sodium Chloride 110 ml @ 27.5 mls/hr Q12HR IVPB 06/07/20 21:00 06/13/20 16:59 06/09/20 08:42 Laboratory Tests 06/09/20 04:00: Urine Eosinophils None seen Height (Feet): 6 Weight (Pounds): 211 Objective exam stable left PCN urine blood-tinged renal u/s (06/08) Jhon Sparks MD Jun 09, 2020 09:07
--- NOTE | 2020-06-09 09:20 | NUR ---
CASE MANAGEMENT:REVIEW 06/09/20 SI: NEPHROLITHIASIS. HYDRONEPHROSIS SEPSIS D/T BACTEREMIA AND UTI. H/O BLADDER CANCER S/P LEFT NEPHROSTOMY TUBE 100.2 91 20 121/75 97% ON RA WBC+15.3 NA-129 BUN+23 CR+2.0 IS: IV ZOSYN Q12 IVF@100/HR HEPARIN SQ Q12 : TELEMETRY STATUS DCP: FROM HOME PLAN: REGULAR DIET
--- NOTE | 2020-06-09 10:42 | NUR ---
RD ASSESSMENT & RECOMMENDATIONS SEE CARE ACTIVITY FOR COMPLETE ASSESSMENT DAILY ESTIMATED NEEDS: Needs based on Cardiac, renal 84.7kg abw 25-30 kcals/kg 3241-5540 total kcals 1-1.2 g protein/kg 85-102 g total protein 25-30 mL/kg 0649-2072 total fluid mLs NUTRITION DIAGNOSIS: Decreased fat, sodium, and and sugar needs r/t clinical status as evidenced by elevated Triglycerides (405), A1C pre-DM (6.0), elev creat (2.0). CURRENT DIET: Regular PO DIET RECOMMENDATIONS: Rec Cardiac / CCHO MED diet ADDITIONAL RECOMMENDATIONS: 1) Obtain a standing weight as able 2) Add snacks in b/w meals w/ variable po intake 3) Monitor Na (129, low) need for fluid restriction on limited IVF. 4) Monitor lytes w/ renal impairment
--- NOTE | 2020-06-09 11:43 | NUR ---
HAND-OFF: Report given to SUGAR REYES. Pt is awake and stable, endorsed plan of care.
--- NOTE | 2020-06-09 11:53 | Pulmonology Progress Note ---
Subjective ROS Limited/Unobtainable: No Interval Events: Looking and feeling better Constitutional: Reports: no symptoms HEENT: Repors: no symptoms Respiratory: Reports: no symptoms Cardiovascular: Reports: no symptoms Gastrointestinal/Abdominal: Reports: no symptoms Allergies: Coded Allergies: No Known Allergies (Unverified , 06/05/20) Objective Last 24 Hour Vital Signs Date Time Temp Pulse Resp B/P (MAP) Pulse Ox O2 Delivery O2 Flow Rate FiO2 06/09/20 09:00 Room Air 06/09/20 08:00 100.2 91 20 121/75 (90) 97 06/09/20 07:54 91 06/09/20 04:00 93 06/09/20 04:00 98.9 90 18 133/82 (99) 98 06/09/20 00:00 90 06/09/20 00:00 98.8 92 18 130/87 (101) 98 06/08/20 21:00 Room Air 06/08/20 20:00 98.1 80 18 109/78 (88) 96 06/08/20 20:00 94 06/08/20 15:30 98.1 96 20 118/98 (105) 100 06/08/20 15:19 95 06/08/20 14:37 101 20 149/94 (112) 97 06/08/20 14:26 91 22 2.0 06/08/20 13:35 91 22 168/93 (118) 99 06/08/20 13:20 91 18 2.0 06/08/20 13:14 98.1 93 18 169/98 (121) 95 06/08/20 11:53 98.1 84 20 150/95 (113) 100 Intake and Output 06/08/20 06/09/20 19:00 07:00 Intake Total 400 ml 300 ml Output Total 35 ml 1200 ml Balance 365 ml -900 ml Intake Oral 400 ml 200 ml IV Total 100 ml Output Urine Total 1200 ml Other 35 ml # Voids 2 General Appearance: no acute distress HEENT: normocephalic Respiratory: chest wall non-tender, lungs clear Cardiovascular: normal peripheral pulses, normal rate Abdomen: normal bowel sounds Laboratory Tests 06/09/20 04:00: Urine Eosinophils None seen Current Medications Medications (Trade) Dose Ordered Sig/Kelin Route PRN Reason Start Time Stop Time Status Last Admin Dose Admin Acetaminophen (Tylenol) 650 mg Q4H PRN ORAL Mild Pain (Pain Scale 1-3) 06/05/20 17:45 07/05/20 17:44 Dextrose (Dextrose 50%) 25 ml Q30M PRN IV Hypoglycemia 06/05/20 17:45 09/03/20 17:44 Dextrose (Dextrose 50%) 50 ml Q30M PRN IV Hypoglycemia 06/05/20 17:45 09/03/20 17:44 Dextrose/Sodium Chloride 1,000 ml @ 100 mls/hr Q10H IV 06/07/20 14:00 07/07/20 13:59 06/08/20 21:12 Docusate Sodium (Colace) 100 mg THREE TIMES A DAY ORAL 06/07/20 18:00 07/07/20 17:59 06/09/20 08:42 Heparin Sodium (Porcine) (Heparin 5000 units/ml) 5,000 units EVERY 12 HOURS SUBQ 06/05/20 21:00 07/20/20 20:59 06/09/20 08:43 Hydralazine HCl (Apresoline) 10 mg Q6H PRN ORAL SBP over 150 06/09/20 02:30 09/07/20 02:29 Ondansetron HCl (Zofran) 4 mg Q6H PRN IVP Nausea & Vomiting 06/08/20 14:15 07/08/20 14:14 Pantoprazole (Protonix) 40 mg EVERY 12 HOURS ORAL 06/07/20 21:00 07/07/20 20:59 06/09/20 08:42 Piperacillin Sod/ Tazobactam Sod 3.375 gm/Sodium Chloride 110 ml @ 27.5 mls/hr Q12HR IVPB 06/07/20 21:00 06/13/20 16:59 06/09/20 08:42 Assessment/Plan Assessment/Plan IMPRESSION: 1. Urosepsis. 2. Bladder carcinoma. 3. Urostomy. DISCUSSION: Consulted nephrology Has gram negative rods in urine and blood On Zosyn Feeling better SaRS rapid test negative S/p nephrostomy ID called Kendy Peñaloza Omar Syed MD Jun 09, 2020 11:52
[2020-06-09 12:00] VITALS: BP 112/70
--- NOTE | 2020-06-09 12:00 | NUR ---
NURSE NOTES: Received pt in bed, AAO x 4. No c/o of pain/distress at this moment. IV on L hand 22g, running D5NS @ 100 ml/hr. Urostomy on r side and nephrostomy on L side noted. Side rail x 2. Bed in the lowest and locked. Call light within reach. Will continue to monitor
--- NOTE | 2020-06-09 13:33 | CDS Physician Query ---
Clarification is required for compliance, coding accuracy, and to reflect severity of illness for this patient Dear Dr. 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 Urosepsis 2. Bladder Carcinoma 3. Urostomy Urology progress note 06/09: Sepsis...left hydro secondary to ureteral calc pt with urostomy, unable to do retrograde approach proceed with left nephrostomy CT scan of the abdomen and pelvis: 7 mm stone of the left proximal ureter, 5 mm calculus in the ureter and a moderate left hydronephrosis, 5 mm stone in the urostomy pouch, bilateral intrarenal calculi. Please respond to the following question: Is there a diagnosis specific to these symptoms or values? If so please state below. PHYSICIAN RESPONSE: [] Sepsis due to urostomy obstruction and UTI [] UTI due to urostomy obstruction [] Other: [] Unknown Present on Admission: [] Yes [] No [] Clinically Undetermined Physician signature Date Please also document in your Progress Notes and/or Discharge Summary and indicate if the condition was present on admission. MTDD
[2020-06-09 16:00] VITALS: BP 140/80
--- NOTE | 2020-06-09 17:29 | Consultation ---
DATE OF CONSULTATION: 06/09/2020 INFECTIOUS DISEASES CONSULTATION CONSULTING PHYSICIAN: Phyllis Mendoza MD. REFERRING PHYSICIAN: Jaya Cochran MD. REASON FOR CONSULTATION: Gram-negative sepsis. HISTORY OF PRESENTING ILLNESS: This is a 70-year-old gentleman with history of bladder carcinoma, status post urostomy, chemotherapy, surgery, who came in because he was weak and tremulous. He also had left-sided flank pain. He underwent a left-sided nephrostomy for a stone and an Infectious Diseases consultation has been obtained for antibiotics. PAST MEDICAL HISTORY: History of bladder cancer, status post urostomy, status post chemotherapy. SOCIAL HISTORY: He used to be a smoker, he quit years ago. He drinks alcohol socially. No history of drug use. FAMILY HISTORY: Noncontributory. REVIEW OF SYSTEMS: RESPIRATORY: No fever, chills, cough, shortness of breath or chest pain. CARDIAC: No chest pain. No palpitation. No dizziness. No syncope. GASTROINTESTINAL: No nausea. No vomiting. No abdominal pain or diarrhea. MUSCULOSKELETAL: Denies any pain. MEDICATIONS: As an inpatient, he is on hydralazine, Zofran, Zosyn, Protonix, docusate, subcutaneous heparin, Tylenol. ALLERGIES: No known drug allergies. PHYSICAL EXAMINATION: VITAL SIGNS: Temperature of 100.2, T-max of 100.2, pulse of 91, respiratory rate 20, blood pressure 121/75, O2 saturation of 97%. HEENT: Pupils equally reactive to light and accommodation. Mouth appears clean without thrush. NECK: Supple. No adenopathy. No JVD. CARDIOVASCULAR: Regular rate and rhythm. No murmurs. LUNGS: Clear to auscultation bilaterally. No crackles. No wheezes. ABDOMEN: Soft and nontender. No organomegaly. Left-sided nephrostomy noted. Urostomy noted. EXTREMITIES: No cyanosis, no clubbing, no edema. LABORATORY AND DIAGNOSTIC DATA: White count 15.3, hemoglobin 14.1, hematocrit 44.9, MCV 96, platelet count of 193,000 with neutrophils of 89%. Sodium 129, potassium 4.4, chloride 96, bicarb 22, BUN 23, creatinine 2, glucose 161, calcium of 9.3. Total bilirubin 1.2, direct bilirubin of 0.8. AST 29, ALT 24, alkaline phosphatase 98. C-reactive protein 4.8. Beta-natriuretic peptide 203. Total protein 8.3, albumin 2.6. Total cholesterol 173. UA is showing too numerous to count white cells. Blood cultures growing gram-negative rods. COVID-19 rapid test was negative. Urine culture is growing gram-negative rods and Klebsiella. The Klebsiella is susceptible to ceftriaxone, meropenem, piperacillin and tazobactam. On 06/06/2020, urine culture showing mixed urogenital contaminants. CT chest, abdomen and pelvis showing status post cholecystectomy and urinary diversion, 7 x 7 x 5 mm calculus in the proximal left ureter, 5 mm calculus and small punctate calculus in the left mid ureter. [id number] left-sided hydronephrosis and perinephric fat stranding, [id number] right hydronephrosis. There is a calculus within the urostomy pouch, nonobstructive bilateral intrarenal calculi, left-sided periaortic lymphadenopathy. Chest x-ray showing no acute process. Renal ultrasound showing nonobstructive left renal calculi, mild right-sided hydronephrosis, moderate left-sided hydronephrosis and left proximal ureteral calculus. ASSESSMENT: This is a 70-year-old gentleman with history of bladder cancer, status post urostomy and chemotherapy, who comes in with weakness and is found to have: 1. Gram-negative sepsis, likely secondary to urinary tract infection. 2. Klebsiella and gram-negative urinary tract infection. 3. Left ureteral calculi and hydronephrosis, status post left-sided nephrostomy. 4. Leukocytosis. PLAN: 1. Continue Zosyn. 2. We will follow up cultures and adjust antibiotics accordingly. I would like to thank, Dr. Lozano, for this consultation. Phyllis Mendoza M.D. DR: DENISE/SUSHMA JOB#: [id number] CC: Jaya Cochran MD.; Fax#: [phone]
--- NOTE | 2020-06-09 19:23 | NUR ---
HAND-OFF: Report given to SUGAR Harper & Roxanna RN .
--- NOTE | 2020-06-09 19:34 | NUR ---
NURSE NOTES: Received report from SUGAR Ott. Patient is awake lying semi-ryan's; resting comfortably. No signs of acute distress noted; denies pain at this time. AOx4; able to make needs known. Ambulates with some assistance. Checked IV site, lines, and IV rate; patent and running. No erythema, bleeding, or infiltration noted. Left nephrostomy draining well to gravity and right urostomy bag intact. No bleeding noted around either sites. Bed at lowest position, brakes on, siderails up x3. Call light within reach. Will continue to monitor.
[2020-06-09 20:00] VITALS: BP 103/80
--- NOTE | 2020-06-09 20:37 | Nephrology Progress Note ---
Assessment/Plan Problem List: (1) UTI (urinary tract infection) (2) Renal failure (ARF), acute on chronic (3) Bladder cancer (4) Sepsis (5) Gram-negative bacteremia (6) Obstructive uropathy (7) Nephrolithiasis (8) Hyponatremia Plan continue IVF abxs follow BMP Subjective Subjective All noted Objective Objective Last 24 Hour Vital Signs Date Time Temp Pulse Resp B/P (MAP) Pulse Ox O2 Delivery O2 Flow Rate FiO2 06/09/20 16:00 95 06/09/20 16:00 97.1 90 19 140/80 (100) 97 06/09/20 12:00 90 06/09/20 12:00 97.9 88 19 112/70 (84) 98 06/09/20 09:00 Room Air 06/09/20 08:00 100.2 91 20 121/75 (90) 97 06/09/20 07:54 91 06/09/20 04:00 93 06/09/20 04:00 98.9 90 18 133/82 (99) 98 06/09/20 00:00 90 06/09/20 00:00 98.8 92 18 130/87 (101) 98 06/08/20 21:00 Room Air Intake and Output 06/08/20 06/09/20 19:00 07:00 Intake Total 400 ml 300 ml Output Total 35 ml 1200 ml Balance 365 ml -900 ml Intake Oral 400 ml 200 ml IV Total 100 ml Output Urine Total 1200 ml Other 35 ml # Voids 2 Laboratory Tests 06/09/20 04:00: Urine Eosinophils None seen Height (Feet): 6 Weight (Pounds): 211 Fidel Osborne MD Jun 09, 2020 20:37
[2020-06-10] VITALS: BP 120/73
[2020-06-10] MEDS: D5NS 1,000 ML IV SCH ×2 (01:03→12:00)
--- NOTE | 2020-06-10 01:33 | Cardiology Progress Note ---
Subjective DATE OF SERVICE: Jun 09, 2020 Patient had episodes of 2:1 2nd degree AV block on 06/08. No recurrent episodes today. He is s/p nephrostomy. Objective Last 24 Hour Vital Signs Date Time Temp Pulse Resp B/P (MAP) Pulse Ox O2 Delivery O2 Flow Rate FiO2 06/09/20 20:00 97.5 102 19 103/80 (88) 95 06/09/20 16:00 95 06/09/20 16:00 97.1 90 19 140/80 (100) 97 06/09/20 12:00 90 06/09/20 12:00 97.9 88 19 112/70 (84) 98 06/09/20 09:00 Room Air 06/09/20 08:00 100.2 91 20 121/75 (90) 97 06/09/20 07:54 91 06/09/20 04:00 93 06/09/20 04:00 98.9 90 18 133/82 (99) 98 HEENT: normal ENT inspection RHYTHM: other - 2:1 second degree AV block on 06/08/20 LUNGS: lungs clear bilaterally CARDIAC: normal rate, regular rhythm, normal S1 and S2 ABDOMEN: other - nephrostomy EXTREMITIES: No edema Laboratory Tests Test 06/09/20 04:00 Urine Eosinophils None seen (NONE SEEN) Microbiology Date/Time Source Procedure Growth Status 06/08/20 14:00 Kidney Left Anaerobic Culture - Preliminary NO GROWTH Resulted Assessment/Plan Assessment/Plan Impression: 1. Asymptomatice 2nd degree AV block, likely precipitated by an increase in vagal tone. 2. Bladder cancer 3. Obstructive uropathy - s/p nephrostomy 4. Urinary sepsis Plan: Antimicrobials Continue cardiac monitoring 2D Echo to eval for structural heart disease Faustino Prince MD Jun 10, 2020 01:33
[2020-06-10 04:00] VITALS: BP 129/73
[2020-06-10 07:20] LABS: BASOPHILS % (AUTO) 1.4 % (0.0-2.0); EOSINOPHILS % (AUTO) 0.4 % (0.0-3.0); HEMATOCRIT 39.8 % (42.0-52.0); HEMOGLOBIN 12.5 G/DL (14.2-18.0); LYMPHOCYTES % (AUTO) 8.1 % (20.0-45.0); MEAN CORPUSCULAR VOLUME 96 FL (80-99); MONOCYTES % (AUTO) 9.5 % (1.0-10.0); NEUTROPHILS % (AUTO) 80.6 % (45.0-75.0); PLATELET COUNT 205 K/UL (150-450); RED BLOOD COUNT 4.15 M/UL (4.70-6.10); RED CELL DISTRIBUTION WIDTH 14.2 % (11.6-14.8)
--- NOTE | 2020-06-10 07:27 | NUR ---
HAND-OFF: Report given to SUGAR Ott. Patient is awake lying semi-ryan's; resting comfortably. In stable condition.
--- NOTE | 2020-06-10 07:32 | NUR ---
NURSE NOTES: Received pt in bed, AAO x 4. No c/o of pain/distress at this moment. IV on L hand 22g, running D5NS @ 100 ml/hr. Urostomy on R and Nephrostomy on L noted. Side Rails x 2. Bed in the lowest and locked. Call light within reach. Will continue to monitor
[2020-06-10 07:43] LABS: ANION GAP 7 mmol/L (5-15); BLOOD UREA NITROGEN 17 mg/dL (7-18); CALCIUM 9.1 MG/DL (8.5-10.1); CARBON DIOXIDE 23 MMOL/L (21-32); CHLORIDE 102 MMOL/L (98-107); CREATININE 1.6 MG/DL (0.55-1.30); POTASSIUM 3.7 MMOL/L (3.5-5.1); SODIUM 132 MMOL/L (136-145)
[2020-06-10 08:00] VITALS: BP 149/79
--- NOTE | 2020-06-10 08:19 | Urology Progress Note ---
Assessment/Plan Assessment/Plan: 1. Acute kidney injury. 2. Hydronephrosis. 3. Colic history. 4. Nephrolithiasis. 5. Bladder cancer history. 6. UTI, colonized. 7. Sepsis. 8. Hematuria. 9. Proteinuria. left hydro secondary to ureteral calc pt with urostomy, unable to do retrograde approach left nephrostomy placed 06/08 hand irrigated and do PRN abx as ordered tx of stones later electively consider med/onc evaluation at some point f/u on cx of urine from left kidney d/w nursing staff fully Subjective Allergies: Coded Allergies: No Known Allergies (Unverified , 06/05/20) Subjective all noted, feels fair Objective Last 24 Hour Vital Signs Date Time Temp Pulse Resp B/P (MAP) Pulse Ox O2 Delivery O2 Flow Rate FiO2 06/10/20 08:10 Room Air 06/10/20 08:00 98.6 86 18 149/79 (102) 98 06/10/20 04:00 97.2 84 17 129/73 (91) 97 06/10/20 04:00 88 06/10/20 00:00 91 06/10/20 00:00 96.8 83 17 120/73 (89) 98 06/09/20 21:00 Room Air 06/09/20 20:00 102 06/09/20 20:00 97.5 102 19 103/80 (88) 95 06/09/20 16:00 95 06/09/20 16:00 97.1 90 19 140/80 (100) 97 06/09/20 12:00 90 06/09/20 12:00 97.9 88 19 112/70 (84) 98 06/09/20 09:00 Room Air Intake and Output 06/09/20 06/10/20 19:00 07:00 Intake Total 1542.5 ml 2110.0 ml Output Total 1864 ml Balance 1542.5 ml 246.0 ml Intake Oral 960 ml 900 ml IV Total 582.5 ml 1210.0 ml Other 1864 ml # Voids 2 # Bowel Movements 2 Microbiology Date/Time Source Procedure Growth Status 06/05/20 12:05 Blood Blood Culture - Final Escherichia Coli Complete 06/05/20 12:05 Nasopharynx SARS-CoV-2 RdRp Gene Assay - Final Complete 06/06/20 04:00 Urine,Clean Catch Urine Culture - Final Mixed Urogenital Contaminants Complete 06/08/20 14:00 Kidney Left Gram Stain - Preliminary Resulted 06/08/20 14:00 Kidney Left Aerobic Culture Pending Resulted Current Medications Medications (Trade) Dose Ordered Sig/Kelin Route PRN Reason Start Time Stop Time Status Last Admin Dose Admin Acetaminophen (Tylenol) 650 mg Q4H PRN ORAL Mild Pain (Pain Scale 1-3) 06/05/20 17:45 07/05/20 17:44 Dextrose (Dextrose 50%) 25 ml Q30M PRN IV Hypoglycemia 06/05/20 17:45 09/03/20 17:44 Dextrose (Dextrose 50%) 50 ml Q30M PRN IV Hypoglycemia 06/05/20 17:45 09/03/20 17:44 Dextrose/Sodium Chloride 1,000 ml @ 100 mls/hr Q10H IV 06/07/20 14:00 07/07/20 13:59 06/10/20 01:03 Docusate Sodium (Colace) 100 mg THREE TIMES A DAY ORAL 06/07/20 18:00 07/07/20 17:59 06/09/20 17:56 Heparin Sodium (Porcine) (Heparin 5000 units/ml) 5,000 units EVERY 12 HOURS SUBQ 06/05/20 21:00 07/20/20 20:59 06/09/20 20:34 Hydralazine HCl (Apresoline) 10 mg Q6H PRN ORAL SBP over 150 06/09/20 02:30 09/07/20 02:29 Ondansetron HCl (Zofran) 4 mg Q6H PRN IVP Nausea & Vomiting 06/08/20 14:15 07/08/20 14:14 Pantoprazole (Protonix) 40 mg EVERY 12 HOURS ORAL 06/07/20 21:00 07/07/20 20:59 06/09/20 20:34 Piperacillin Sod/ Tazobactam Sod 3.375 gm/Sodium Chloride 110 ml @ 27.5 mls/hr Q12HR IVPB 06/07/20 21:00 06/13/20 16:59 06/09/20 20:34 Laboratory Tests 06/10/20 06:30: Urine Eosinophils [Pending] 06/10/20 06:49: White Blood Count 12.0H, Red Blood Count 4.15L, Hemoglobin 12.5L, Hematocrit 39.8L, Mean Corpuscular Volume 96, Mean Corpuscular Hemoglobin 30.2, Mean Corpuscular Hemoglobin Concent 31.4L, Red Cell Distribution Width 14.2, Platelet Count 205, Mean Platelet Volume 8.1, Neutrophils (%) (Auto) 80.6H, Lymphocytes (%) (Auto) 8.1L, Monocytes (%) (Auto) 9.5, Eosinophils (%) (Auto) 0.4, Basophils (%) (Auto) 1.4, Sodium Level 132L, Potassium Level 3.7, Chloride Level 102, Carbon Dioxide Level 23, Anion Gap 7, Blood Urea Nitrogen 17, Creatinine 1.6H, Estimat Glomerular Filtration Rate 52.4, Glucose Level 120H, Calcium Level 9.1 Height (Feet): 6 Weight (Pounds): 209 Objective exam stable left PCN urine blood-tinged renal u/s (06/08) Jhon Sparks MD Jun 10, 2020 08:19
[2020-06-10] MEDS: Docusate 100mg cap ORAL SCH (08:40)
[2020-06-10] MEDS: Piperacillin/Tazobactam 3.375 GM in NS 110 ML IVPB SCH (08:40)
[2020-06-10] MEDS: Heparin 5000 units/ml inj SUBQ SCH (08:41)
--- NOTE | 2020-06-10 09:09 | NUR ---
CASE MANAGEMENT:REVIEW 06/10/20 SI: NEPHROLITHIASIS. HYDRONEPHROSIS S/P LT NEPHROSTOMY TUBE. H/O BLADDER CANCER 100.2 91 20 121/75 97% ON RA WBC+15.3 NA-129 BUN+23 CR+2.0 IS: IV ZOSYN Q12 IVF@100/HR HEPARIN SQ Q12 : TELEMETRY STATUS DCP: FROM HOME PLAN: HAND IRRIGATE PRN TREATMENT OF STONES LATER ELECTIVELY F/U URINE CX FROM KIDNEY
--- NOTE | 2020-06-10 09:11 | NUR ---
CASE MANAGEMENT:REVIEW 06/10/20 SI: NEPHROLITHIASIS. HYDRONEPHROSIS S/P LT NEPHROSTOMY TUBE. H/O BLADDER CANCER 98.6 86 18 149/79 98% ON RA WBC+12.0 H/H-12.5/39.8 CR+1.6 IS: IV ZOSYN Q12 IVF@100/HR HEPARIN SQ Q12 : TELEMETRY STATUS DCP: FROM HOME PLAN: HAND IRRIGATE PRN TREATMENT OF STONES LATER ELECTIVELY F/U URINE CX FROM KIDNEY
--- NOTE | 2020-06-10 09:55 | Pulmonology Progress Note ---
Subjective ROS Limited/Unobtainable: No Interval Events: Looking and feeling better Constitutional: Reports: no symptoms HEENT: Repors: no symptoms Respiratory: Reports: no symptoms Cardiovascular: Reports: no symptoms Gastrointestinal/Abdominal: Reports: no symptoms Allergies: Coded Allergies: No Known Allergies (Unverified , 06/05/20) Objective Last 24 Hour Vital Signs Date Time Temp Pulse Resp B/P (MAP) Pulse Ox O2 Delivery O2 Flow Rate FiO2 06/10/20 08:10 Room Air 06/10/20 08:00 98.6 86 18 149/79 (102) 98 06/10/20 04:00 97.2 84 17 129/73 (91) 97 06/10/20 04:00 88 06/10/20 00:00 91 06/10/20 00:00 96.8 83 17 120/73 (89) 98 06/09/20 21:00 Room Air 06/09/20 20:00 102 06/09/20 20:00 97.5 102 19 103/80 (88) 95 06/09/20 16:00 95 06/09/20 16:00 97.1 90 19 140/80 (100) 97 06/09/20 12:00 90 06/09/20 12:00 97.9 88 19 112/70 (84) 98 Intake and Output 06/09/20 06/10/20 19:00 07:00 Intake Total 1542.5 ml 2110.0 ml Output Total 1864 ml Balance 1542.5 ml 246.0 ml Intake Oral 960 ml 900 ml IV Total 582.5 ml 1210.0 ml Other 1864 ml # Voids 2 # Bowel Movements 2 General Appearance: no acute distress HEENT: normocephalic Respiratory: chest wall non-tender, lungs clear Cardiovascular: normal peripheral pulses, normal rate Abdomen: normal bowel sounds Microbiology Date/Time Source Procedure Growth Status 06/08/20 14:00 Kidney Left Gram Stain - Final Resulted 06/08/20 14:00 Aerobic Culture - Preliminary Gram Negative Bacillus 1 Gram Positive Cocci Resulted 06/08/20 14:00 Kidney Left Anaerobic Culture - Preliminary NO GROWTH Resulted Laboratory Tests 06/10/20 06:30: Urine Eosinophils None seen 06/10/20 06:49: White Blood Count 12.0H, Red Blood Count 4.15L, Hemoglobin 12.5L, Hematocrit 39.8L, Mean Corpuscular Volume 96, Mean Corpuscular Hemoglobin 30.2, Mean Corpuscular Hemoglobin Concent 31.4L, Red Cell Distribution Width 14.2, Platelet Count 205, Mean Platelet Volume 8.1, Neutrophils (%) (Auto) 80.6H, Lymphocytes (%) (Auto) 8.1L, Monocytes (%) (Auto) 9.5, Eosinophils (%) (Auto) 0.4, Basophils (%) (Auto) 1.4, Sodium Level 132L, Potassium Level 3.7, Chloride Level 102, Carbon Dioxide Level 23, Anion Gap 7, Blood Urea Nitrogen 17, Creatinine 1.6H, Estimat Glomerular Filtration Rate 52.4, Glucose Level 120H, Calcium Level 9.1 Current Medications Medications (Trade) Dose Ordered Sig/Kelin Route PRN Reason Start Time Stop Time Status Last Admin Dose Admin Acetaminophen (Tylenol) 650 mg Q4H PRN ORAL Mild Pain (Pain Scale 1-3) 06/05/20 17:45 07/05/20 17:44 Dextrose (Dextrose 50%) 25 ml Q30M PRN IV Hypoglycemia 06/05/20 17:45 09/03/20 17:44 Dextrose (Dextrose 50%) 50 ml Q30M PRN IV Hypoglycemia 06/05/20 17:45 09/03/20 17:44 Dextrose/Sodium Chloride 1,000 ml @ 100 mls/hr Q10H IV 06/07/20 14:00 07/07/20 13:59 06/10/20 01:03 Docusate Sodium (Colace) 100 mg THREE TIMES A DAY ORAL 06/07/20 18:00 07/07/20 17:59 06/10/20 08:40 Heparin Sodium (Porcine) (Heparin 5000 units/ml) 5,000 units EVERY 12 HOURS SUBQ 06/05/20 21:00 07/20/20 20:59 06/10/20 08:41 Hydralazine HCl (Apresoline) 10 mg Q6H PRN ORAL SBP over 150 06/09/20 02:30 09/07/20 02:29 Ondansetron HCl (Zofran) 4 mg Q6H PRN IVP Nausea & Vomiting 06/08/20 14:15 07/08/20 14:14 Pantoprazole (Protonix) 40 mg EVERY 12 HOURS ORAL 06/07/20 21:00 07/07/20 20:59 06/10/20 08:40 Piperacillin Sod/ Tazobactam Sod 3.375 gm/Sodium Chloride 110 ml @ 27.5 mls/hr Q12HR IVPB 06/07/20 21:00 06/13/20 16:59 06/10/20 08:40 Assessment/Plan Assessment/Plan IMPRESSION: 1. Urosepsis. 2. Bladder carcinoma. 3. Urostomy. DISCUSSION: Consulted nephrology Has gram negative rods in urine and blood On Zosyn Feeling better SaRS rapid test negative S/p nephrostomy ID coansult noted; continue Zosyn Dc planning for home in next 24 hours Kendy Peñaloza Omar Syed MD Jun 10, 2020 09:55
[2020-06-10] MEDS ORDERED: LEVAQUIN500 MG ORAL (10:12)
--- NOTE | 2020-06-10 10:35 | Infectious Diseases Prog Note ---
"Assessment/Plan Assessment/Plan antibiotics : zosyn A 1. e.coli sepsis secondary to UTI 2. e.coli | klebsiella UTI 3. leucocytosis improving 4. renal failure improving 5. left ureteral stone | hydronephrosis s/p left nephrostomy 6. bladder cancer P 1. d/c zosyn 2. start and continue po levoquin 8 more days 3. will follow up cultures 4. okay for discharge from ID perspective Subjective Constitutional: Denies: fever, chills Respiratory: Denies: shortness of breath, dry cough Gastrointestinal/Abdominal: Denies: nausea, vomiting, diarrhea Musculoskeletal: Denies: pain Allergies: Coded Allergies: No Known Allergies (Unverified , 06/05/20) Objective Last 24 Hour Vital Signs Date Time Temp Pulse Resp B/P (MAP) Pulse Ox O2 Delivery O2 Flow Rate FiO2 06/10/20 08:10 Room Air 06/10/20 08:00 98.6 86 18 149/79 (102) 98 06/10/20 04:00 97.2 84 17 129/73 (91) 97 06/10/20 04:00 88 06/10/20 00:00 91 06/10/20 00:00 96.8 83 17 120/73 (89) 98 06/09/20 21:00 Room Air 06/09/20 20:00 102 06/09/20 20:00 97.5 102 19 103/80 (88) 95 06/09/20 16:00 95 06/09/20 16:00 97.1 90 19 140/80 (100) 97 06/09/20 12:00 90 06/09/20 12:00 97.9 88 19 112/70 (84) 98 Height (Feet): 6 Weight (Pounds): 209 Respiratory/Chest: lungs clear Cardiovascular: normal rate, regular rhythm, no gallop/murmur Abdomen: soft, non tender, other - left nephrostomy Extremities: no edema Microbiology Date/Time Source Procedure Growth Status 06/08/20 14:00 Kidney Left Gram Stain - Final Resulted 06/08/20 14:00 Aerobic Culture - Preliminary Gram Negative Bacillus 1 Gram Positive Cocci Resulted 06/08/20 14:00 Kidney Left Anaerobic Culture - Preliminary Resulted Laboratory Tests Test 06/10/20 06:30 06/10/20 06:49 Urine Eosinophils None seen (NONE SEEN) White Blood Count 12.0 K/UL (4.8-10.8) H Red Blood Count 4.15 M/UL (4.70-6.10) L Hemoglobin 12.5 G/DL (14.2-18.0) L Hematocrit 39.8 % (42.0-52.0) L Mean Corpuscular Volume 96 FL (80-99) Mean Corpuscular Hemoglobin 30.2 PG (27.0-31.0) Mean Corpuscular Hemoglobin Concent 31.4 G/DL (32.0-36.0) L Red Cell Distribution Width 14.2 % (11.6-14.8) Platelet Count 205 K/UL (150-450) Mean Platelet Volume 8.1 FL (6.5-10.1) Neutrophils (%) (Auto) 80.6 % (45.0-75.0) H Lymphocytes (%) (Auto) 8.1 % (20.0-45.0) L Monocytes (%) (Auto) 9.5 % (1.0-10.0) Eosinophils (%) (Auto) 0.4 % (0.0-3.0) Basophils (%) (Auto) 1.4 % (0.0-2.0) Sodium Level 132 MMOL/L (136-145) L Potassium Level 3.7 MMOL/L (3.5-5.1) Chloride Level 102 MMOL/L (98-107) Carbon Dioxide Level 23 MMOL/L (21-32) Anion Gap 7 mmol/L (5-15) Blood Urea Nitrogen 17 mg/dL (7-18) Creatinine 1.6 MG/DL (0.55-1.30) H Estimat Glomerular Filtration Rate 52.4 mL/min (>60) Glucose Level 120 MG/DL (74-106) H Calcium Level 9.1 MG/DL (8.5-10.1) Current Medications Medications (Trade) Dose Ordered Sig/Kelin Route PRN Reason Start Time Stop Time Status Last Admin Dose Admin Acetaminophen (Tylenol) 650 mg Q4H PRN ORAL Mild Pain (Pain Scale 1-3) 06/05/20 17:45 07/05/20 17:44 Dextrose (Dextrose 50%) 25 ml Q30M PRN IV Hypoglycemia 06/05/20 17:45 09/03/20 17:44 Dextrose (Dextrose 50%) 50 ml Q30M PRN IV Hypoglycemia 06/05/20 17:45 09/03/20 17:44 Dextrose/Sodium Chloride 1,000 ml @ 100 mls/hr Q10H IV 06/07/20 14:00 07/07/20 13:59 06/10/20 01:03 Docusate Sodium (Colace) 100 mg THREE TIMES A DAY ORAL 06/07/20 18:00 07/07/20 17:59 06/10/20 08:40 Heparin Sodium (Porcine) (Heparin 5000 units/ml) 5,000 units EVERY 12 HOURS SUBQ 06/05/20 21:00 07/20/20 20:59 06/10/20 08:41 Hydralazine HCl (Apresoline) 10 mg Q6H PRN ORAL SBP over 150 06/09/20 02:30 09/07/20 02:29 Ondansetron HCl (Zofran) 4 mg Q6H PRN IVP Nausea & Vomiting 06/08/20 14:15 07/08/20 14:14 Pantoprazole (Protonix) 40 mg EVERY 12 HOURS ORAL 06/07/20 21:00 07/07/20 20:59 06/10/20 08:40 Piperacillin Sod/ Tazobactam Sod 3.375 gm/Sodium Chloride 110 ml @ 27.5 mls/hr Q12HR IVPB 06/07/20 21:00 06/13/20 16:59 06/10/20 08:40 Phyllis Mendoza MD Jun 10, 2020 10:35"
--- NOTE | 2020-06-10 10:57 | Nephrology Progress Note ---
Assessment/Plan Problem List: (1) UTI (urinary tract infection) (2) Renal failure (ARF), acute on chronic Assessment: better (3) Bladder cancer (4) Sepsis (5) Gram-negative bacteremia (6) Obstructive uropathy (7) Nephrolithiasis (8) Hyponatremia Assessment: better Plan discussed with Dr Cochran ok to discharge Subjective Subjective feels ok Objective Objective Last 24 Hour Vital Signs Date Time Temp Pulse Resp B/P (MAP) Pulse Ox O2 Delivery O2 Flow Rate FiO2 06/10/20 08:10 Room Air 06/10/20 08:00 98.6 86 18 149/79 (102) 98 06/10/20 04:00 97.2 84 17 129/73 (91) 97 06/10/20 04:00 88 06/10/20 00:00 91 06/10/20 00:00 96.8 83 17 120/73 (89) 98 06/09/20 21:00 Room Air 06/09/20 20:00 102 06/09/20 20:00 97.5 102 19 103/80 (88) 95 06/09/20 16:00 95 06/09/20 16:00 97.1 90 19 140/80 (100) 97 06/09/20 12:00 90 06/09/20 12:00 97.9 88 19 112/70 (84) 98 Intake and Output 06/09/20 06/10/20 19:00 07:00 Intake Total 1542.5 ml 2110.0 ml Output Total 1864 ml Balance 1542.5 ml 246.0 ml Intake Oral 960 ml 900 ml IV Total 582.5 ml 1210.0 ml Other 1864 ml # Voids 2 # Bowel Movements 2 Laboratory Tests 06/10/20 06:30: Urine Eosinophils None seen 06/10/20 06:49: White Blood Count 12.0H, Red Blood Count 4.15L, Hemoglobin 12.5L, Hematocrit 39.8L, Mean Corpuscular Volume 96, Mean Corpuscular Hemoglobin 30.2, Mean Corpuscular Hemoglobin Concent 31.4L, Red Cell Distribution Width 14.2, Platelet Count 205, Mean Platelet Volume 8.1, Neutrophils (%) (Auto) 80.6H, Lymphocytes (%) (Auto) 8.1L, Monocytes (%) (Auto) 9.5, Eosinophils (%) (Auto) 0.4, Basophils (%) (Auto) 1.4, Sodium Level 132L, Potassium Level 3.7, Chloride Level 102, Carbon Dioxide Level 23, Anion Gap 7, Blood Urea Nitrogen 17, Creatinine 1.6H, Estimat Glomerular Filtration Rate 52.4, Glucose Level 120H, Calcium Level 9.1 Height (Feet): 6 Weight (Pounds): 209 Cardiovascular: normal rate Respiratory/Chest: chest wall non-tender Extremities: no edema Fidel Osborne MD Jun 10, 2020 10:57
[2020-06-10 12:00] VITALS: BP 121/73
[2020-06-10] MEDS ORDERED: D5NS 1000ml IV ONE (13:29)
[2020-06-10] MEDS ORDERED: NS 275ml ONE (13:29)
--- NOTE | 2020-06-10 13:35 | NUR ---
NURSE NOTES: Patient was discharged to home via private vehicle accompanied by family members. Escorted pt down to entrance. ID and IV was removed. No s/s of infection/bleeding. Discharge instructions to regarding nephrostomy care and prescriptions were given to patient. Belongings were accounted and given to patient.
--- NOTE | 2020-06-10 14:54 | NUR ---
*-* INSURANCE *-* ALL AVAILABLE CLINICALS AND REVIEWS HAVE BEEN FAXED TO: [facility] [place]:CR[facility] REF# [id number] P: [phone] F: [phone]
--- NOTE | 2020-06-11 02:00 | Cardiology Progress Note ---
Subjective DATE OF SERVICE: Jun 10, 2020 Patient had episodes of 2:1 2nd degree AV block on 06/08. No recurrent episodes since then. He is s/p nephrostomy. DC plan noted Objective Last 24 Hour Vital Signs Date Time Temp Pulse Resp B/P (MAP) Pulse Ox O2 Delivery O2 Flow Rate FiO2 06/10/20 12:00 86 06/10/20 12:00 98.7 89 18 121/73 (89) 100 06/10/20 08:10 Room Air 06/10/20 08:00 84 06/10/20 08:00 98.6 86 18 149/79 (102) 98 06/10/20 04:00 97.2 84 17 129/73 (91) 97 06/10/20 04:00 88 HEENT: normal ENT inspection RHYTHM: other - 2:1 second degree AV block on 06/08/20 LUNGS: lungs clear bilaterally CARDIAC: normal rate, regular rhythm, normal S1 and S2 ABDOMEN: other - nephrostomy EXTREMITIES: No edema Laboratory Tests Test 06/10/20 06:30 06/10/20 06:49 Urine Eosinophils None seen (NONE SEEN) White Blood Count 12.0 K/UL (4.8-10.8) H Red Blood Count 4.15 M/UL (4.70-6.10) L Hemoglobin 12.5 G/DL (14.2-18.0) L Hematocrit 39.8 % (42.0-52.0) L Mean Corpuscular Volume 96 FL (80-99) Mean Corpuscular Hemoglobin 30.2 PG (27.0-31.0) Mean Corpuscular Hemoglobin Concent 31.4 G/DL (32.0-36.0) L Red Cell Distribution Width 14.2 % (11.6-14.8) Platelet Count 205 K/UL (150-450) Mean Platelet Volume 8.1 FL (6.5-10.1) Neutrophils (%) (Auto) 80.6 % (45.0-75.0) H Lymphocytes (%) (Auto) 8.1 % (20.0-45.0) L Monocytes (%) (Auto) 9.5 % (1.0-10.0) Eosinophils (%) (Auto) 0.4 % (0.0-3.0) Basophils (%) (Auto) 1.4 % (0.0-2.0) Sodium Level 132 MMOL/L (136-145) L Potassium Level 3.7 MMOL/L (3.5-5.1) Chloride Level 102 MMOL/L (98-107) Carbon Dioxide Level 23 MMOL/L (21-32) Anion Gap 7 mmol/L (5-15) Blood Urea Nitrogen 17 mg/dL (7-18) Creatinine 1.6 MG/DL (0.55-1.30) H Estimat Glomerular Filtration Rate 52.4 mL/min (>60) Glucose Level 120 MG/DL (74-106) H Calcium Level 9.1 MG/DL (8.5-10.1) Microbiology Date/Time Source Procedure Growth Status 06/08/20 14:00 Kidney Left Gram Stain - Final Resulted 06/08/20 14:00 Aerobic Culture - Preliminary Gram Negative Bacillus 1 Gram Positive Cocci Resulted 06/08/20 14:00 Kidney Left Anaerobic Culture - Preliminary Resulted Assessment/Plan Assessment/Plan Impression: 1. Asymptomatic 2nd degree AV block, likely precipitated by an increase in vagal tone; now resolved. 2. Bladder cancer 3. Obstructive uropathy - s/p nephrostomy 4. Urinary sepsis Plan: Antimicrobials per ID May discontinue cardiac monitoring Stable for transfer to lower of level of care from cardiac standpoint; no indication for pacemaker. Faustino Prince MD Jun 11, 2020 02:00
--- NOTE | 2020-06-11 18:44 | Discharge Summary ---
Discharge Summary Discharge Summary _ DATE OF ADMISSION: 06/05/2020 DATE OF DISCHARGE: 06/10/2020 DISCHARGED BY: Dr. Cochran REASON FOR ADMISSION: 70 years old male with history of bladder carcinoma, status post urostomy, history of urolithiasis, presented to emergency department for evaluation. Patient reported left-sided flank pain at home. He reported feeling weak and tremulous. Upon evaluation in ED patient was tachycardic with heart rate 140 , no fevers. Laboratory work-up revealed leukocytosis WBC 14.8, stable hemoglobin, hematocrit and platelet count. Urinalysis was grossly consistent with UTI . Stable electrolytes. BUN 20, creatinine 2.0. Glucose 152. Lactic acid 2.5. Magnesium 1.7. Phosphorus 2.0. Troponin negative, pro BNP 407. EKG revealed sinus tachycardia , no acute ischemic changes. Chest x-ray demonstrated no definite acute process. CT scan of the abdomen and pelvis revealed status post cystectomy and urinary diversion. Calculus in the proximal left ureter calculus and smaller punctate calculi in the mid left ureter, resulting in mild to moderate left hydronephrosis as well as perinephric fat stranding Trace to mild right hydronephrosis. Nonspecific stranding of the perinephric fat on the right. Patient subsequently admitted for further management. CONSULTANTS: track equipment operator Dr. Prince ID specialist Dr. Mendoza messenger copy Dr. Webster urologist Dr. Sparks HOSPITAL COURSE: Patient admitted and started on empiric antibiotics. Home medication continued. Renal parameters and electrolytes were closely monitored. With IV hydration BUN from 20 down to 17 and creatinine from 2.0 down to 1.6. Renal ultrasound revealed moderate left hydronephrosis due to obstructive left proximal ureteral calculus. Nonobstructive left intrarenal calculi. Mild right hydronephrosis. Patient undergone successful placement of left nephrostomy tube for management of obstructive uropathy. Urologist recommended hand irrigation left nephrostomy as needed. Treatment of stones can be done later as elective procedure. Oncology evaluation was recommended . Blood culture revealed E. coli. Urine culture revealed E. coli and Klebsiella. Culture from the urostomy tube revealed E. coli and strep group a Sepsis was secondary to UTI. Rapid COVID-19 was negative. While in the hospital patient was on the IV antibiotic and discharged on oral antibiotic to complete the course as per ID specialist recommendation. Leukocytosis trending down, no fevers Pain management was addressed as needed. Supportive care provided. DVT prophylaxis provided. Patient clinically stabilized and was ready for discharge home. FINAL DIAGNOSES: E. coli sepsis secondary to UTI E. coli/Klebsiella UTI Acute kidney injury on chronic kidney disease Obstructive uropathy Nephrolithiasis Hydronephrosis s/p nephrostomy tube placement Bladder cancer DISCHARGE MEDICATIONS: See Medication Reconciliation list. DISCHARGE INSTRUCTIONS: Patient was discharged home. Follow-up with a primary care provider in 1 week. I have been assigned to dictate discharge summary for this account. I was not involved in the patient's management. Katelynn Celis NP Jun 11, 2020 18:44
--- NOTE | 2020-06-17 09:25 | NUR ---
*-* INSURANCE *-* DISCHARGE SUMMARY HAS BEEN FAXED TO: [facility] [place]:[facility] REF# [id number] P: [phone] F: [phone]
== END 2020-06-10 13:30 | disposition home or self-care (01) | DRG 872 ==
LOC: EDBD 11:47 → EMR 11:50 → 2E 14:00 → EDBEDREQ 14:13
PROC: 0T9130Z Drainage of Left Kidney with Drainage Device, Percutaneous Approach (ICD-10-PCS; principal; 2020-06-08)
DX: A41.51 Sepsis due to Escherichia coli [E. coli] (principal); N39.0 Urinary tract infection, site not specified; N17.9 Acute kidney failure, unspecified; K57.92 Diverticulitis of intestine, part unspecified, without perforation or abscess without bleeding; E87.1 Hypo-osmolality and hyponatremia; N13.2 Hydronephrosis with renal and ureteral calculous obstruction; B96.1 Klebsiella pneumoniae [K. pneumoniae] as the cause of diseases classified elsewhere; N18.9 Chronic kidney disease, unspecified; Z85.51 Personal history of malignant neoplasm of bladder; K43.5 Parastomal hernia without obstruction or gangrene; Z87.891 Personal history of nicotine dependence; Z90.6 Acquired absence of other parts of urinary tract; I44.1 Atrioventricular block, second degree
CPT/HCPCS: 36415; 50432; 71045; 71250; 74176; 76770; 80048; 80053; 80061; 80076; 81003; 82248; 82306; 82550; 82553; 82570; 82977; 83036; 83605; 83735; 83880; 83970; 84100; 84300; 84443; 84484; 84550; 85007; 85025; 85610; 85730; 86140; 86850; 86900; 86901; 86920; 87040; 87070; 87075; 87086; 87181; 87205; 89050; 93005; 96365; 96367; 99285; J2405; J7030; U0002